=== PATIENT | male | born 1960 | race Two or more races ===

== ENCOUNTER → 2020-09-12 10:24 | Outpatient (CLI) | payer OTHER, SELFPAY ==
--- NOTE | 2020-09-12 10:34 | XR_ITS ---
PROCEDURE: XR FOOT WT BEARING LT 3V CLINICAL INDICATION: pain COMPARISON: No exams were available for comparison FINDINGS: No fracture or dislocation. No lytic or blastic change. There is normal mineralization. The joint spaces are well-preserved. No significant degenerative/arthritic changes. No erosive changes evident. Other findings:None. IMPRESSION: No acute findings. Dictated by: Gibran Montes MD 09/12/2020 11:12 Gibran Montes MD in [facility] 09/12/2020 11:12
--- NOTE | 2020-09-12 10:34 | XR_ITS ---
PROCEDURE: XR FOOT WT BEARING RT 3V CLINICAL INDICATION: pain COMPARISON: No exams were available for comparison FINDINGS: No fracture or dislocation. No lytic or blastic change. There is normal mineralization. Osteoarthritic changes are present at the DIP of the 2nd toe Other findings:None. 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
== END ==
PROVIDERS: Visit Provider Nurse Practitioner
DX: M72.2 Plantar fascial fibromatosis (principal)
CPT/HCPCS: 73630

== ENCOUNTER 2020-11-04 12:58 | Day surgery (SDC) | payer OTHER, SELFPAY ==
[2020-11-04 13:02] VITALS: BP 141/84; PULSE 80; RESP 18; TEMP 36.6; O2SAT 98; BMI 25.7
[2020-11-04 13:25] VITALS: BP 121/74; BP 133/74; PULSE 85; RESP 18; O2SAT 98
[2020-11-04 13:37] VITALS: BP 130/78; PULSE 79; RESP 20; O2SAT 98
--- NOTE | 2020-11-04 13:59 | [facility].PMPROC ---
- Procedure Date: 11/04/20 Time: 13:59 Anesthesiologist:: Nate Rodriguez MD Complications:: None Pre-procedure Diagnosis:: Left tarsal tunnel syndrome with heel pain Post-procedure Diagnosis:: Same Indications for Procedure:: Patient is a pleasant 60-year-old [place] male who we are treating for left-sided heel pain and tarsal tunnel syndrome. He has had a heel block which did not give him much relief. We will do a posterior tibial nerve block under ultrasound today to see if this gives him better relief of his symptoms. Procedure Details:: Posterior tibial nerve block with ultrasound Informed consent was obtained the risk and benefits of the procedure were explained to the patient. Patient was taken to the procedure room. The left foot was prepped using ChloraPrep. Under ultrasound guidance we injected 10 mL bupivacaine 0.25% Depo-Medrol 40 mg and around the left posterior tibial nerve. Patient tolerated procedure well with no complications. Plan and Disposition:: We will follow-up with him in 2 weeks. Will reevaluate symptoms at that time.
== END 2020-11-04 13:39 | disposition home or self-care (01) ==
PROVIDERS: PCP Emergency Medicine; Visit Provider Anesthesiology
DX: G57.52 Tarsal tunnel syndrome, left lower limb (principal); Z88.1 Allergy status to other antibiotic agents
CPT/HCPCS: 64450; 76942; J1030

== ENCOUNTER → 2020-11-04 15:16 | Outpatient (CLI) | payer OTHER, SELFPAY ==
[2020-11-04 15:25] LABS: Basophils % 0.6 % (0.1-2.0); Eosinophils # 0.1 K/mm3 (0.0-0.4); Eosinophils % 2.3 % (0.1-12.0); Hematocrit 50.6 % (42.0-52.0); Hemoglobin 16.6 g/dL (14.1-18.0); Lymphocytes # 1.3 K/mm3 (0.7-4.5); Lymphocytes % 26.3 % (10-50); Mean Corpuscular HGB Conc 32.7 g/dL (31.8-35.4); Mean Corpuscular Hemoglobin 31.4 pg (27.0-31.2); Mean Corpuscular Volume 96.1 fl (80-94); Mean Platelet Volume 8.6 fl (7.4-10.4); Monocytes # 0.2 K/mm3 (0.1-1.0); Monocytes % 4.4 % (1.7-9.3); Neutrophils # 3.4 K/mm3 (1.8-7.8); Neutrophils % 66.4 % (37.0-80.0); Platelet Count 226 K/mm3 (142-424); Red Blood Count 5.27 M/mm3 (4.60-6.20); Red Cell Distribution Width 13.7 % (11.5-17.5); White Blood Count 5.1 K/mm3 (4.8-10.8)
[2020-11-04 15:36] LABS: Alanine Aminotransferase 30 U/L (12-78); Albumin Level 4.8 g/dl (3.5-5.0); Albumin/Globulin Ratio 1.5 (1.1-1.8); Alkaline Phosphatase 119 U/L (38-126); Anion Gap 14.5 mEq/L (5-15); Aspartate Amino Transferase 43 U/L (17-59); Bilirubin,Total 0.9 mg/dl (0.2-1.3); Blood Urea Nitrogen 16 mg/dl (9-20); Calcium 9.7 mg/dl (8.4-10.2); Carbon Dioxide 27 mmol/L (22.0-30.0); Chloride 104 mmol/L (98-107); Chol/HDL Ratio 3.5 (1-3.5); Cholesterol 223 mg/dl (140-200); Estimated Glomerular Filt Rate 76 ml/min (>60); GFR (African American) 92 ML/MIN (>60); Globulin 3.3 g/dL (1.3-3.2); Glucose 96 mg/dl (74-100); HDL Cholesterol 63 mg/dl (40-60); Potassium 4.5 mmoL/L (3.5-5.1); Sodium 141 mmol/L (136-145); Total Protein,Serum 8.1 g/dl (6.3-8.2); Triglycerides 101 mg/dl (30-150); VLDL Cholesterol 20 mg/dL (0-40)
[2020-11-04 15:46] LABS: Direct LDL Cholesterol 127.11 mg/dL (100-129)
[2020-11-04 16:07] LABS: Prostate Specific Ag Screen 1.3 ng/ml (0.0-4.0); Thyroid Stimulating Hormone 1.22 uIU/mL (0.465-4.68)
== END ==
PROVIDERS: Specialist; Visit Provider Emergency Medicine
DX: Z00.00 Encounter for general adult medical examination without abnormal findings (principal); Z12.5 Encounter for screening for malignant neoplasm of prostate
CPT/HCPCS: 80053; 80061; 82746; 84443; 85025; G0103

== ENCOUNTER 2020-11-18 08:59 | Day surgery (SDC) | payer OTHER, SELFPAY ==
[2020-11-18 09:16] VITALS: BP 130/85; PULSE 77; RESP 18; TEMP 36.6; O2SAT 98; BMI 24.9
[2020-11-18 09:56] VITALS: BP 132/78; PULSE 78; RESP 18
[2020-11-18 09:57] VITALS: BP 128/89; PULSE 79; RESP 18; O2SAT 98
[2020-11-18 10:03] VITALS: BP 127/81; PULSE 63; RESP 18; O2SAT 98
--- NOTE | 2020-11-18 10:04 | P.PCN_ITS ---
- Procedure Date: 11/18/20 Time: 10:04 Anesthesiologist:: Nate Rodriguez MD Complications:: None Pre-procedure Diagnosis:: Left tarsal tunnel syndrome with heel pain Post-procedure Diagnosis:: Same Indications for Procedure:: This patient is a pleasant 60-year-old [place] male who we are treating for left-sided heel pain and tarsal tunnel syndrome. He last had a posterior tibial nerve block with ultrasound which took his pain from an 8 out of 10 to a 4-5 out of 10 for several weeks. His pain is now back. We will do a repeat posterior tibial nerve block and a left-sided heel block to see if this gives him any additional relief. Procedure Details:: Posterior tibial nerve block with ultrasound and heel block. Informed consent was obtained risk and benefits of the procedure were explained to the patient. The patient was taken to the procedure room. The left foot was prepped using ChloraPrep. Under ultrasound guidance we injected 10 mL bupiv acaine 0.25% and Depo-Medrol 40 mg around the left posterior tibial nerve. And then under ultrasound guidance we also injected 10 mL bupivacaine 0.25% and Depo-Medrol 40 mg into the area of the left heel. The patient tolerated both procedures well with no complications. Plan and Disposition:: We will follow-up with him in 2 weeks. Will reevaluate symptoms at that time. I did talk to him about peripheral nerve stimulation with the [employer] system as a long-term treatment option
== END 2020-11-18 10:03 | disposition home or self-care (01) ==
LOC: SC.PAINP 09:00
PROVIDERS: PCP Emergency Medicine; Visit Provider Anesthesiology
DX: G57.52 Tarsal tunnel syndrome, left lower limb (principal); M79.672 Pain in left foot; I10 Essential (primary) hypertension; Z88.8 Allergy status to other drugs, medicaments and biological substances; Z87.39 Personal history of other diseases of the musculoskeletal system and connective tissue; M19.90 Unspecified osteoarthritis, unspecified site
CPT/HCPCS: 64450; 76942; J1040

== ENCOUNTER 2023-09-06 14:54 | Outpatient (CLI) | payer OTHER, SELFPAY ==
[2023-09-06 14:28] LABS: Basophils % 0.8 % (0.1-2.0); Eosinophils # 0.1 K/mm3 (0.0-0.4); Eosinophils % 2.2 % (0.1-12.0); Hematocrit 49.3 % (42.0-52.0); Hemoglobin 16.8 g/dL (14.1-18.0); Lymphocytes # 1.4 K/mm3 (0.7-4.5); Lymphocytes % 24.4 % (10-50); Mean Corpuscular HGB Conc 34.1 g/dL (31.8-35.4); Mean Corpuscular Hemoglobin 32.3 pg (27.0-31.2); Mean Corpuscular Volume 94.7 fl (80-94); Mean Platelet Volume 9.3 fl (7.4-10.4); Monocytes # 0.4 K/mm3 (0.1-1.0); Monocytes % 7.8 % (1.7-9.3); Neutrophils # 3.7 K/mm3 (1.8-7.8); Neutrophils % 64.8 % (37.0-80.0); Platelet Count 199 K/mm3 (142-424); Red Blood Count 5.21 M/mm3 (4.60-6.20); Red Cell Distribution Width 13.6 % (11.5-17.5); White Blood Count 5.7 K/mm3 (4.8-10.8)
[2023-09-06 15:16] LABS: 25-OH Vitamin D, Total 19.8 ng/mL (30-100)
[2023-09-06 15:27] LABS: Alanine Aminotransferase 28 U/L (12-78); Albumin Level 4.4 g/dl (3.5-5.0); Albumin/Globulin Ratio 1.4 (1.1-1.8); Alkaline Phosphatase 96 U/L (38-126); Anion Gap 12.7 mEq/L (5-15); Aspartate Amino Transferase 33 U/L (17-59); Bilirubin,Total 0.9 mg/dl (0.2-1.3); Blood Urea Nitrogen 11 mg/dl (9-20); Calcium 9.2 mg/dl (8.4-10.2); Carbon Dioxide 29 mmol/L (22.0-30.0); Chloride 104 mmol/L (98-107); Chol/HDL Ratio 4.5 (1-3.5); Cholesterol 217 mg/dl (140-200); Estimated Glomerular Filt Rate 114 ml/min (>60); GFR (African American) 137 ML/MIN (>60); Globulin 3.1 g/dL (1.3-3.2); Glucose 80 mg/dl (74-100); HDL Cholesterol 48 mg/dl (40-60); Potassium 4.7 mmoL/L (3.5-5.1); Sodium 141 mmol/L (136-145); Total Protein,Serum 7.5 g/dl (6.3-8.2); Triglycerides 136 mg/dl (30-150); VLDL Cholesterol 27 mg/dL (0-40)
[2023-09-06 15:39] LABS: Direct LDL Cholesterol 129.07 mg/dL (100-129)
[2023-09-06 15:44] LABS: T4 (Thyroxine) 8.8 ug/dl (5.53-11.0)
[2023-09-06 15:57] LABS: Prostate Specific Ag Screen 1.4 ng/ml (0.0-4.0); Thyroid Stimulating Hormone 1.25 uIU/mL (0.465-4.68)
== END 2023-09-06 23:59 ==
LOC: LAB.DROPOF 14:54
PROVIDERS: PCP Internal Medicine; Visit Provider Internal Medicine
DX: E78.00 Pure hypercholesterolemia, unspecified (principal); E55.9 Vitamin D deficiency, unspecified; Z12.5 Encounter for screening for malignant neoplasm of prostate
CPT/HCPCS: 80053; 80061; 82306; 84436; 84443; 85025; G0103

== ENCOUNTER 2025-04-20 16:00 | Outpatient (CLI) | payer OTHER, SELFPAY ==
--- OUTSIDE RECORDS SUMMARY | 2025-01-18 10:30 | XMS_ITS | Encounter Summary ---
Author Organization [facility] Address [address] [place] [address] Care Team Providers Care Benefits Manager Name Role Phone Unavailable Primary Care Provider Unavailabl e Reason for Referral * Imaging (Routine) - Pending Review Specialty Diagnoses / Procedures Referred By Contac t Referred To Contact Radiology Diagnoses Visual field loss Procedures MR Head w and wo IV Contrast Jonnathan Zapata MD [address] [place] [address] Phone: tel: fax: Referral ID Status Reason Start Date Expiration Date V isits Requested Visits Authorized [id number] Pending Review 01/18/2025 07/20/2026 1 1 * Imaging (Routine) - Pending Review Specialty Diagnoses / Procedures Referred By Contac t Referred To Contact Radiology Diagnoses Visual field loss Optic neuropathy Procedures MR Orbits w and wo IV Contrast Jonnathan Zapata MD [address] [place] [id number] Phone: tel: fax: Referral ID Status Reason Start Date Expiration Date V isits Requested Visits Authorized [id number] Pending Review 01/18/2025 07/20/2026 1 1 Encounter Details Date Type Department Care Team (Late st Contact Info) Description 01/18/2025 10:30 AM EDT Office Visit [facility] [address], [address] [place] [address] Jonnathan Zapata MD [address] [place] [address] Visual field loss (Primary Dx); Optic neuropathy; Normal tension glaucoma of both eyes, mild stage; Dry eye; Combined form of age-related cataract, both eyes; Dry eyes; Epiretinal membrane, both eyes; Family history of macular degeneration; Cystoid nevus of conjunctiva of right eye; Arcus senilis of both corneas; Vitreous floaters of both eyes; Allergic conjunctivitis of both eyes; Squamous blepharitis of upper and lower eyelids of both eyes; Ocular migraine; Hyperopia with presbyopia of both eyes Social History Tobacco Use Types Packs/Day Years Used Date Smoking Tobacco: Never Passive Smoke Exposure: Never Smokeless Tobacco: Never Tobacco Cessation:Counseling Given: Not Answered Alcohol Use Standard Drinks/Week Comments Never 0 (1 standard drink = 0.6 oz pur e alcohol) PHQ-2 Answer Date Recorded Patient Health Questionnaire-2 Score 0 08/09/2022 PHQ-2A Answer Date Recorded Patient Health Questionnaire-2 Score 0 08/09/2022 Sex and Gender Information Value Date Recorded Sex Assigned at Not on file Legal Sex Male 7:31 PM EDT Gender Identity Not on file Sexual Orientation Not on file documented as of this encounter Miscellaneous Notes * Addendum Note - Jonnathan Zapata MD - 01/18/2025 10:30 AM EDTAddended by: JONNATHAN ZAPATA on: 03/04/2025 09:40 AM Modules accepted: Orders * Progress Notes - Jonnathan Zapata MD - 01/18/2025 10:30 AM EDT Patient overdue for follow up Last seen July 2023 Today: update tobacco/vape exposure, Manifest refraction, check glare, IOP check with applanation, HVF 30-2 fast OU, dilate and OCT macula and OCT RNFL OU Optic Disc Cupping / Normal Tension Glaucoma Suspect Diagnosis sleep apnea- uses oral appliance at night. History of suspicious optic disc appearance. Goal to keep IOP 12 or lower (ideally single digits) Highest IOP 16, 17 Continues to use Lumigan OU at bedtime (qhs) - using 3 times per week, not compliant Last seen July 2023 OCT RNFL OU today, January 2025: OD - thin superiorly and nasally, overall thin (74) OS - borderline thin RNFL superior temporally overall WNL (88) HVF 30-2 fast July 2023: OD - GHT WNL, PSD 1.90 OS - GHT WNL, PSD 2.12, early inferior arcuate defect HVF 30-2 fast OU today, January 2025 - worse OU OD - reliable, GHT outside normal, PSD 2.97, MD -2.46, inferior arcuate > superior arcuate, suspicious for inferior, right-sided quadrantopia OS - reliable, GHT borderline, PSD 3.06, MD -3.15, inferior>superior arcuate, preponderance of defects in right inferior quadrant IOP today: 12 OU (did not use lumigan since Saturday) Color vision: 1414 OU Plan: Worsening visual field changes OU. Suspect worsening NTG. Patient not compliant with drops or follow up visits. Rx for Lumigan refilled today. Discussed compliance with drops and follow ups. Also discussed other possible causes of visual field loss. Ordered labs (vitamins and toxins) and neuroimaging - MRI orbits and brain with and without contrast. Rule out compressive lesions to optic nerve(s) and chiasm and also rule out posterior CVAs. Recheck 2 months IOP check with applanation. Review test results. If IOP 13 or greater may change to trial of rocklatan. Addendum 02-17-2025: The following message was sent to patient via [employer]. Dear Mr. Hammermino, As you recall, I ordered laboratory studies to rule out vitamin deficiencies and toxic exposures aspossible causes, or contributing causes, of optic nerve damage. Your vitamin B12 level is low. For ideal optic nerve health, vitamin B12 level should remain above 400. Your vitamin B12 level was 272. Most people get enough vitamin B12 from a balanced diet. However, older adults, vegetarians, and people with conditions that affect their ability to absorb vitamin B12 can develop vitamin B12 deficiencies. Also certain medications can decrease the absorption of vitamin B12 from our food. Some medicationsand supplements can reduce your body's ability to absorb vitamin B12 including: somaminosalicylic acid, colchicine, metformin, omeprazole, lansoprazole and vitamin C supplements. Do not stop taking any regular medications without first consulting your primary care doctor. I recommend that you begin taking an uzkw-ybo-yyyedyd vitamin B12 supplement, 1000 mcg daily, underthe tongue. Look for the sublingual B12 supplements gfpn-wki-konalgc. I also recommend you follow up with your primary care provider regarding the B12 deficiency and have the B12 level rechecked in a few months. -Jonnathan Zapata MD Addendum 03/04/2025: MRI brain and orbits with and without contrast on 03/03/2025 IMPRESSION: No acute intracranial findings. Mild white matter disease likely reflects sequela of chronic microvascular ischemia. Unremarkable appearance of the bilateral orbits. Mild to moderate mucosal sinus disease of the right maxillary sinus. Cataracts both eyes. Glare testing today 20/30+2 OD and 20/25-2 OS. The patient has been informed of the diagnosis and the prognosis with and without surgery. Will wait on surgery for now as deemed not severe enough to require intervention at this time. Recommend wearing UV sunglasses outside. Do not smoke. Follow and recheck in 12 months. Family history of macular degeneration in mother and sister. Patient has only very mild aging changes in the macula. No subretinal fluid. No hemorrhage. - UV sunglasses outside. - Eat diet with darkly pigmented vegetables and citrus fruit. - Screen vision at home daily with [employer]. - Recheck one year or sooner PRN if new symptoms. Epiretinal Membrane OU This is mild. The patient has been informed of the diagnosis and the prognosis with and without surgery. Will wait on surgery for now as deemed not severe enough to require intervention at this time. OCT macula OU today: ERM OU Blunting of the normal foveal depression OD more than OS. No CME. No VMT. Follow, repeat testing next year or sooner PRN. Corneal arcus - This is not visually significant. Nevus OU conjunctiva. Will follow. Patient does not notice any new changes. Vitreous syneresis - No pigment or hemorrhage in vitreous. Retina intact 360 degrees to aura with no holes, tears or detachments. Patient advised to return immediately for any new symptoms such as bright flashes, shower of floaters or any loss of vision. Anterior Blepharitis: - warm compresses - gentle eyelid scrub with clean washcloth, warm water and baby shampoo - Cliradex wipes or Ocusoft Oust Demodex wipes BID for 60 days - zwob-hsb-dfjwroe artificial tears / lubricant eye drops as needed for comfort. ALLERGY EYE - avoid eye rubbing - proper eyelid hygiene. - rixk-xfo-yxngbyn allergy drops BID (Zaditor, Alaway, or Patanol) as needed. - Return if symptoms worsen, do not improve or if other new symptoms occur. DRY EYES/ Superficial Punctate Keratopathy. Epiphora when using screens, foreign body sensation, burning sensation. - Avoid eye rubbing. - artificial tears (prefer preservative-free) 4 to 6 times daily - warm compresses to the closed eyelids twice daily - lubricant ointment (lacrilube, refresh pm or genteal pm) before bed - Eat foods rich in omega-3 fatty acids and stay well hydrated. - sleeping mask over the eyes at night maybe be helpful Refractive error: Patient given a copy of updated glasses Rx. Patient may have this Rx filled at any optical shop. Advised to ask about return policy at optical shop. Discussed with patient that manifest refraction is a subjective process that can be affected by issues such as underlying eye disease, dry eye and fatigue and focus/attention during the test. If there are any issues or problems withthe new glasses, patient may return here for a recheck / tweaking of the prescription if necessary at no charge. Tobacco Use: Low Risk (07/15/2023) Patient History Smoking Tobacco Use: Never Smokeless Tobacco Use: Never Passive Exposure: Not on file No vaping The patient has been counseled on tobacco cessation: Not Applicable RV check new glasses, check IOP, review tests documented in this encounter Plan of Treatment Upcoming Encounters Date Type Department Care Team (Late st Contact Info) Description 06/21/2025 2:45 PM EST Office Visit [facility] [address], [address] [place] [address] Jonnathan Zapata MD [address] [place] [address] documented as of this encounter Procedures Procedure Name Priority Date/Time Associated Diagnosis Comments OCT, RETINA - OU - BOTH EYES Routine 01/18/2025 2:32 PM EDT Epiretinal membrane, both eyes OCT, OPTIC NERVE - OU - BOTH EYES Routine 01/18/2025 2:24 PM EDT Normal tension glaucoma of both eyes, mild stage HSU VISUAL FIELD - OU - BOTH EYES Routine 01/18/2025 2:23 PM EDT Normal tension glaucoma of both eyes, mild stage documented in this encounter Results * MR Head w and wo IV Contrast (03/02/2025 3:24 PM EDT) Anatomical Region Laterality Modality Head Magnetic Resonan ce Impressions 03/03/2025 7:44 PM EDT No acute intracranial findings. Mild white matter disease likely reflects sequela of chronic microvascular ischemia. Unremarkable appearance of the bilateral orbits. Mild to moderate mucosal sinus disease of the right maxillary sinus. CRITICAL RESULT: No. COMMUNICATION: Per this written report. By electronically signing this report, I, the attending physician, attest that I have personally reviewed the images/data for the above examination(s) and agree with the final edited report. Drafted by Jorge Metz M.D. on 03/03/2025 7:14 PM Final report signed by Naeem Juarez MD on 03/03/2025 7:44 PM Narrative 03/03/2025 7:44 PM EDT CLINICAL INDICATION: Vision loss, monocular TECHNIQUE: Multiplanar multiecho sequences were performed through the brain utilizing T1 and T2 weighting, as well as either axial susceptibility weighted or gradient echo sequences, and axial diffusion weighted images. Imaging was performed with and without contrast administration: 7.5 mL of Gadavist. Multiplanar multiecho sequences were performed through the orbits utilizing T1 and T2 weighted, with and without contrast, and with and without fat-saturation. COMPARISON: None. FINDINGS: MRI BRAIN: Diagnostic Quality: Adequate. The ventricles and sulci are normal in size. There are no definite focal parenchymal lesions or masses. Moderate T2/FLAIR hyperintensities within the subcortical, deep and periventricular white matter which are nonspecific, likely reflecting sequela of chronic microvascular ischemia. No abnormal intracranial enhancement is present. There is no abnormal parenchymal susceptibility artifact or restricted diffusion. Vascular Flow Voids: Normal. Extracranial Findings: None. Craniocervical Junction and Skull Base: No tonsillar ectopia or mass is present. MRI ORBIT: Diagnostic Quality: Motion Degraded. Orbits: No orbital masses are present. The globes are normal. The extraocular muscles are normal in size, signal and configuration. The lacrimal glands are normal. Optic Nerves: The optic nerves are normal in size and signal intensity. No abnormal enhancement is present within the optic nerves or of the optic nerve sheaths. Soft Tissues: No masses are present within the preseptal and periorbital soft tissues Sellar/Suprasellar Region: No sellar or suprasellar masses are present. No cavernous sinus masses are present. Paranasal Sinuses/Nasal Cavity: Mucosal retention cyst and mild to moderate mucosal sinus disease of the right maxillary sinus. The left maxillary sinus and remaining paranasal sinuses are grossly clear. Complete opacification of the left nasolacrimal duct. Procedure Note Naeem Juarez MD - 03/03/2025 CLINICAL INDICATION: Vision loss, monocular TECHNIQUE: Multiplanar multiecho sequences were performed through the brain utilizingT1 and T2 weighting, as well as either axial susceptibility weighted orgradient echo sequences, and axial diffusion weighted images. Imaging wasperformed with and without contrast administration: 7.5 mL of Gadavist. Multiplanar multiecho sequences were performed through the orbitsutilizing T1 and T2 weighted, with and without contrast, and with andwithout fat-saturation. COMPARISON: None. FINDINGS: MRI BRAIN: Diagnostic Quality: Adequate. The ventricles and sulci are normal in size. There are no definite focal parenchymal lesions or masses. ModerateT2/FLAIR hyperintensities within the subcortical, deep and periventricularwhite matter which are nonspecific, likely reflecting sequela of chronicmicrovascular ischemia. No abnormal intracranial enhancement is present. There is no abnormal parenchymal susceptibility artifact or restricteddiffusion. Vascular Flow Voids: Normal. Extracranial Findings: None. Craniocervical Junction and Skull Base: No tonsillar ectopia or mass ispresent. MRI ORBIT: Diagnostic Quality: Motion Degraded. Orbits: No orbital masses are present. The globes are normal. Theextraocular muscles are normal in size, signal and configuration. Thelacrimal glands are normal. Optic Nerves: The optic nerves are normal in size and signal intensity. Noabnormal enhancement is present within the optic nerves or of the opticnerve sheaths. Soft Tissues: No masses are present within the preseptal and periorbitalsoft tissues Sellar/Suprasellar Region: No sellar or suprasellar masses are present. Nocavernous sinus masses are present. Paranasal Sinuses/Nasal Cavity: Mucosal retention cyst and mild tomoderate mucosal sinus disease of the right maxillary sinus. The leftmaxillary sinus and remaining paranasal sinuses are grossly clear.Complete opacification of the left nasolacrimal duct. IMPRESSION: No acute intracranial findings. Mild white matter disease likely reflects sequela of chronic microvascularischemia. Unremarkable appearance of the bilateral orbits. Mild to moderate mucosal sinus disease of the right maxillary sinus. CRITICAL RESULT: No. COMMUNICATION: Per this written report. By electronically signing this report, I, the attending physician, attestthat I have personally reviewed the images/data for the aboveexamination(s) and agree with the final edited report. Drafted by Jorge Metz M.D. on 03/03/2025 7:14 PM Final report signed by Naeem Juarez MD on 03/03/2025 7:44 PM us Jonnathan Zapata MD IMG MRI PROCEDURES Final Result * MR Orbits w and wo IV Contrast (03/02/2025 3:24 PM EDT) Anatomical Region Laterality Modality Orbital structure Magnetic Reson ance Impressions 03/03/2025 7:44 PM EDT No acute intracranial findings. Mild white matter disease likely reflects sequela of chronic microvascular ischemia. Unremarkable appearance of the bilateral orbits. Mild to moderate mucosal sinus disease of the right maxillary sinus. CRITICAL RESULT: No. COMMUNICATION: Per this written report. By electronically signing this report, I, the attending physician, attest that I have personally reviewed the images/data for the above examination(s) and agree with the final edited report. Drafted by Jorge Metz M.D. on 03/03/2025 7:14 PM Final report signed by Naeem Juarez MD on 03/03/2025 7:44 PM Narrative 03/03/2025 7:44 PM EDT CLINICAL INDICATION: Vision loss, monocular TECHNIQUE: Multiplanar multiecho sequences were performed through the brain utilizing T1 and T2 weighting, as well as either axial susceptibility weighted or gradient echo sequences, and axial diffusion weighted images. Imaging was performed with and without contrast administration: 7.5 mL of Gadavist. Multiplanar multiecho sequences were performed through the orbits utilizing T1 and T2 weighted, with and without contrast, and with and without fat-saturation. COMPARISON: None. FINDINGS: MRI BRAIN: Diagnostic Quality: Adequate. The ventricles and sulci are normal in size. There are no definite focal parenchymal lesions or masses. Moderate T2/FLAIR hyperintensities within the subcortical, deep and periventricular white matter which are nonspecific, likely reflecting sequela of chronic microvascular ischemia. No abnormal intracranial enhancement is present. There is no abnormal parenchymal susceptibility artifact or restricted diffusion. Vascular Flow Voids: Normal. Extracranial Findings: None. Craniocervical Junction and Skull Base: No tonsillar ectopia or mass is present. MRI ORBIT: Diagnostic Quality: Motion Degraded. Orbits: No orbital masses are present. The globes are normal. The extraocular muscles are normal in size, signal and configuration. The lacrimal glands are normal. Optic Nerves: The optic nerves are normal in size and signal intensity. No abnormal enhancement is present within the optic nerves or of the optic nerve sheaths. Soft Tissues: No masses are present within the preseptal and periorbital soft tissues Sellar/Suprasellar Region: No sellar or suprasellar masses are present. No cavernous sinus masses are present. Paranasal Sinuses/Nasal Cavity: Mucosal retention cyst and mild to moderate mucosal sinus disease of the right maxillary sinus. The left maxillary sinus and remaining paranasal sinuses are grossly clear. Complete opacification of the left nasolacrimal duct. Procedure Note Naeem Juarez MD - 03/03/2025 CLINICAL INDICATION: Vision loss, monocular TECHNIQUE: Multiplanar multiecho sequences were performed through the brain utilizingT1 and T2 weighting, as well as either axial susceptibility weighted orgradient echo sequences, and axial diffusion weighted images. Imaging wasperformed with and without contrast administration: 7.5 mL of Gadavist. Multiplanar multiecho sequences were performed through the orbitsutilizing T1 and T2 weighted, with and without contrast, and with andwithout fat-saturation. COMPARISON: None. FINDINGS: MRI BRAIN: Diagnostic Quality: Adequate. The ventricles and sulci are normal in size. There are no definite focal parenchymal lesions or masses. ModerateT2/FLAIR hyperintensities within the subcortical, deep and periventricularwhite matter which are nonspecific, likely reflecting sequela of chronicmicrovascular ischemia. No abnormal intracranial enhancement is present. There is no abnormal parenchymal susceptibility artifact or restricteddiffusion. Vascular Flow Voids: Normal. Extracranial Findings: None. Craniocervical Junction and Skull Base: No tonsillar ectopia or mass ispresent. MRI ORBIT: Diagnostic Quality: Motion Degraded. Orbits: No orbital masses are present. The globes are normal. Theextraocular muscles are normal in size, signal and configuration. Thelacrimal glands are normal. Optic Nerves: The optic nerves are normal in size and signal intensity. Noabnormal enhancement is present within the optic nerves or of the opticnerve sheaths. Soft Tissues: No masses are present within the preseptal and periorbitalsoft tissues Sellar/Suprasellar Region: No sellar or suprasellar masses are present. Nocavernous sinus masses are present. Paranasal Sinuses/Nasal Cavity: Mucosal retention cyst and mild tomoderate mucosal sinus disease of the right maxillary sinus. The leftmaxillary sinus and remaining paranasal sinuses are grossly clear.Complete opacification of the left nasolacrimal duct. IMPRESSION: No acute intracranial findings. Mild white matter disease likely reflects sequela of chronic microvascularischemia. Unremarkable appearance of the bilateral orbits. Mild to moderate mucosal sinus disease of the right maxillary sinus. CRITICAL RESULT: No. COMMUNICATION: Per this written report. By electronically signing this report, I, the attending physician, attestthat I have personally reviewed the images/data for the aboveexamination(s) and agree with the final edited report. Drafted by Jorge Metz M.D. on 03/03/2025 7:14 PM Final report signed by Naeem Juarez MD on 03/03/2025 7:44 PM Jonnathan Zapata MD IMG MRI PROCEDURES Final Result * Creatinine, Plasma (02/16/2025 10:40 AM EDT) Creatinine, Plasma 0.78 0.70 - 1.20 mg/dL 02/16/2025 11:53 AM EDT [facility] eGFRcr 99.0 mL/min/1.7 3m*2 02/16/2025 11:53 AM EDT [facility] Comment:Reported eGFRcr in m L/min/1.73m2 is based the CKD-EPI 2020 equation that does not use a race coefficient. Blood Venous blood specimen / Unknown Venipuncture / Unknown 02/16/2025 10:40 AM EDT 02/16/2025 10:40 AM EDT Jonnathan Zapata MD LAB BLOOD ORDERABLES Final Resul t [facility] [address] [place] [address] * Vitamin B1 (Thiamine), Whole Blood (02/16/2025 10:40 AM EDT) VITAMIN B1, WHOLE BLOOD 159 70 - 180 nmol/L 02/19/2025 12:41 AM EDT [facility] Blood Venous blood specimen / Unknown Venipuncture / Unknown 02/16/2025 10:40 AM EDT 02/16/2025 10:40 AM EDT Narrative [facility] - 02/19/2025 12:41 AM EDT INTERPRETIVE INFORMATION: Vitamin B1, Whole Blood This assay measures the concentration of thiamine diphosphate (TDP), the primary active form of vitamin B1. Approximately 90 percent of vitamin B1 present in whole blood is TDP. Thiamine and thiamine monophosphate, which comprise the remaining 10 percent, are not measured. This test was developed and its performance characteristics determined by [facility]. It has not been cleared or approved by the [place] Food and Drug Administration. This test was performed in a CLIA certified laboratory and is intended for clinical purposes. Performed By: [facility] [address] [place] [id number] Proposal Review Analyst: Charan Monet MD, PhD CLIA Number: [id number] Jonnathan Zapata MD LAB BLOOD ORDERABLES Final Resul t Performing Organization Address City/[facility] [address]/[facility] Co de Phone Number [facility] [address] [place] [address] * Vitamin B12, Serum (02/16/2025 10:40 AM EDT) [facility] Vitamin B12, Serum 272 210 - 1,033 pg/mL 02/16/2025 12:43 PM EDT [facility] Blood Venous blood specimen / Unknown Venipuncture / Unknown 02/16/2025 10:40 AM EDT 02/16/2025 10:40 AM EDT Jonnathan Zapata MD LAB BLOOD ORDERABLES Final Resul t Performing Organization Address City/[facility] [address]/ZIP Co de Phone Number [facility] [address] [place] [address] * Heavy Metals Panel 3, Blood (02/16/2025 10:40 AM EDT) Pathologist [facility] Arsenic, Whole Blood <10.0 <=12.0 ug/L 02/17/2025 11:56 PM EDT [facility]) Mercury, Whole Blood <2.5 <=10.0 ug/L 02/17/2025 11:56 PM EDT [facility]) Lead, Whole Blood (Venous) <2.0 <=4.9 ug/dL 02/17/2025 11:56 PM EDT [facility]) Blood Venipuncture / Unknown 02/16/2025 10:40 AM EDT 02/16/2025 10:40 AM EDT Narrative [facility] - 02/17/2025 11:56 PM EDT INTERPRETIVE INFORMATION: Arsenic, Blood Elevated results may be due to skin or collection-related contamination, including the use of a noncertified metal-free collection/transport tube. If contamination concerns exist due to elevated levels of blood arsenic, confirmation with a second specimen collected in a certified metal-free tube is recommended. Potentially toxic ranges for blood arsenic: Greater than or equal to 600 ug/L. Blood arsenic is for the detection of recent exposure poisoning only. Blood arsenic levels in healthy subjects vary considerably with exposure to arsenic in the diet and the environment. A 24-hour urine arsenic is useful for the detection of chronic exposure. This test was developed and its performance characteristics determined by [facility]. It has not been cleared or approved by the [place] Food and Drug Administration. This test was performed in a CLIA certified laboratory and is intended for clinical purposes. INTERPRETIVE INFORMATION: Lead, Blood (Venous) Analysis performed by Inductively Coupled Plasma-Mass Spectrometry (ICP-MS). Elevated results may be due to skin or collection-related contamination, including the use of a noncertified lead-free tube. If contamination concerns exist due to elevated levels of blood lead, confirmation with a second specimen collected in a certified lead-free tube is recommended. Information sources for blood lead reference intervals and interpretive comments include the CDC's Childhood Lead Poisoning Prevention: Recommended Actions Based on Blood Lead Level and the Adult Blood Lead Epidemiology and Surveillance: Reference Blood Lead Levels (BLLs) for Adults in the [place] Thresholds and time intervals for retesting, medical evaluation, and response vary by state and regulatory body. Contact your State Department of Health and/or applicable regulatory agency for specific guidance on medical management recommendations. This test was developed and its performance characteristics determined by [facility]. It has not been cleared or approved by the U.S. Food and Drug Administration. This test was performed in a CLIA-certified laboratory and is intended for clinical purposes. Group Concentration Comment Children 3.5-19.9 ug/dL Children under the age of 6 years are the most vulnerable to the harmful effects of lead exposure. Environmental investigation and exposure history to identify potential sources of lead. Biological and nutritional monitoring are recommended. Follow-up blood lead monitoring is recommended. 20-44.9 ug/dL Lead hazard reduction and prompt medical evaluation are recommended. Contact a Pediatric Environmental Health Specialty Unit or poison control center for guidance. Greater than Critical. Immediate medical 44.9 ug/dL evaluation, including detailed neurological exam is recommended. Consider chelation therapy when symptoms of lead toxicity are present. Contact a Pediatric Environmental Health Specialty Unit or poison control center for assistance. Adult 5-19.9 ug/dL Medical removal is recommended for women or those who are trying or may become . Adverse health effects are possible. Reduced lead exposure and increased blood lead monitoring are recommended. 20-69.9 ug/dL Adverse health effects are indicated. Medical removal from lead exposure is required by OSHA if blood lead level exceeds 50 ug/dL. Prompt medical evaluation is recommended. Greater than Critical. Immediate medical 69.9 ug/dL evaluation is recommended. Consider chelation therapy when symptoms of lead toxicity are present. INTERPRETIVE INFORMATION: Mercury, Blood Elevated results may be due to skin or collection-related contamination, including the use of a noncertified metal-free collection/transport tube. If contamination concerns exist due to elevated levels of blood mercury, confirmation with a second specimen collected in a certified metal-free tube is recommended. Blood mercury levels predominantly reflect recent exposure and are most useful in the diagnosis of acute poisoning as blood mercury concentrations rise sharply and fall quickly over several days after ingestion. Blood concentrations in unexposed individuals rarely exceed 20 ug/L. The provided reference interval relates to inorganic mercury concentrations. Dietary and non-occupational exposure to organic mercury forms may contribute to an elevated total mercury result. Clinical presentation after toxic exposure to organic mercury may include dysarthria, ataxia and constricted vision morin with mercury blood concentrations from 20 to 50 ug/L. This test was developed and its performance characteristics determined by [facility]. It has not been cleared or approved by the [place] Food and Drug Administration. This test was performed in a CLIA certified laboratory and is intended for clinical purposes. Performed By: [facility] [address] [place] [address] Proposal Review Analyst: Charan Monet MD, PhD CLIA Number: [id number] us Jonnathan Zapata MD LAB BLOOD ORDERABLES Final Resul t [facility] ([facility]) [address] [place] [address] * Folate, Serum (02/16/2025 10:40 AM EDT) Folate, Serum 19.1 >4.6 ng/mL 02/16/2025 12:43 PM EDT [facility] Blood Venous blood specimen / Unknown Venipuncture / Unknown 02/16/2025 10:40 AM EDT 02/16/2025 10:40 AM EDT Result [facility] us Jonnathan Zapata MD LAB BLOOD ORDERABLES Final Resul t [facility] [address] [place] [address] * OCT, Retina - OU - Both Eyes (01/18/2025 2:32 PM EDT) Anatomical Region Laterality Modality Head Optical Coherenc e Tomography Narrative 01/18/2025 2:32 PM EDT Right Eye Quality was borderline. Scan locations included subfoveal. Findings include abnormal foveal contour. Left Eye Quality was good. Scan locations included subfoveal. Findings include abnormal foveal contour. Notes ERM OU Blunting of the normal foveal depression OD more than OS. No CME. No VMT. us Jonnathan Zapata MD OPHTH TOMOGRAPHY Final Result * OCT, Optic Nerve - OU - Both Eyes (01/18/2025 2:24 PM EDT) Anatomical Region Laterality Modality Head Optical Coherenc e Tomography Narrative 01/18/2025 2:24 PM EDT OCT RNFL OU today, January 2025: OD - thin superiorly and nasally, overall thin (74) OS - borderline thin RNFL superior temporally overall WNL (88) us Jonnathan Zapata MD OPHTH TOMOGRAPHY Final Result * [facility]su Visual Field - OU - Both Eyes (01/18/2025 2:23 PM EDT) Anatomical Region Laterality Modality Head Visual Field Narrative 01/18/2025 2:23 PM EDT Right Eye Reliability was good. Progression has worsened. Left Eye Reliability was good. Progression has worsened. Notes HVF 30-2 fast OU today, January 2025 OD - reliable, GHT outside normal, PSD 2.97, MD -2.46, inferior arcuate > superior arcuate, suspicious for inferior, right-sided quadrantopia OS - reliable, GHT borderline, PSD 3.06, MD -3.15, inferior>superior arcuate, preponderance of defects in right inferior quadrant us Jonnathan Zapata MD OPHTH VISUAL FIELD Edited Result - Final documented in this encounter Visit Diagnoses Diagnosis Visual field loss- Primary Optic neuropathy Other optic neuritis Normal tension glaucoma of both eyes, mild stage Dry eye Combined form of age-related cataract, both eyes Dry eyes Unspecified tear film insufficiency Epiretinal membrane, both eyes Macular puckering of retina Family history of macular degeneration Family history of other eye disorders Cystoid nevus of conjunctiva of right eye Arcus senilis of both corneas Vitreous floaters of both eyes Allergic conjunctivitis of both eyes Other chronic allergic conjunctivitis Squamous blepharitis of upper and lower eyelids of both eyes Ocular migraine Variants of migraine, not elsewhere classified, without mention of intractable migraine without mention of status migrainosus Hyperopia with presbyopia of both eyes Visual field loss Optic neuropathy Other optic neuritis documented in this encounter Additional Health Concerns Assessment Noted Time A fall risk assessment has been complete d for the patient 08/09/2022 8:26 AM EST A Body Mass Index follow-up plan has been documented for the patient 01/18/2025 2:38 PM EDT documented as of this encounter
--- OUTSIDE RECORDS SUMMARY | 2025-03-02 14:22 | XMS_ITS | Encounter Summary ---
Author Organization [facility] Address [address] [place] [address] Care Team Providers Care Veterinary Attendant Name Role Phone Unavailable Primary Care Provider Unavailabl e Reason for Referral * Imaging (Routine) - Pending Review Specialty Diagnoses / Procedures Referred By Contac t Referred To Contact Radiology Diagnoses Visual field loss Procedures MR Head w and wo IV Contrast Catrachita Zapata MD [address] [place] [address] Phone: tel: fax: Referral ID Status Reason Start Date Expiration Date V isits Requested Visits Authorized [id number] Pending Review 01/18/2025 07/20/2026 1 1 * Imaging (Routine) - Pending Review Specialty Diagnoses / Procedures Referred By Contac t Referred To Contact Radiology Diagnoses Visual field loss Optic neuropathy Procedures MR Orbits w and wo IV Contrast Catrachita Zapata MD [address] [place] [id number] Phone: tel: fax: Referral ID Status Reason Start Date Expiration Date V isits Requested Visits Authorized [id number] Pending Review 01/18/2025 07/20/2026 1 1 Reason for Visit * Imaging (Routine) - Pending Review Specialty Diagnoses / Procedures Referred By Contac t Referred To Contact Radiology Diagnoses Visual field loss Procedures MR Head w and wo IV Contrast Catrachita Zapata MD [address] [place] [address] Phone: tel: fax: Referral ID Status Reason Start Date Expiration Date V isits Requested Visits Authorized [id number] Pending Review 01/18/2025 07/20/2026 1 1 Encounter Details Date Type Department Care Team (Latest Contact Info) Description 03/02/2025 2:22 PM EDT - 03/02/2025 11:59 PM EDT Hospital Encounter [facility] [address] [place] [address] Visual field loss; Optic neuropathy Discharge Disposition: Home or Self Care Social History Tobacco Use Types Packs/Day Years Used Date Smoking Tobacco: Never Passive Smoke Exposure: Never Smokeless Tobacco: Never Alcohol Use Standard Drinks/Week Comments Never 0 [...] on file documented as of this encounter Medications at Time of Discharge latanoprost (Xalatan) 0.005 % ophthalmic solution Administer 1 drop into both eyes nightly. 7.5 mL 3 01/18/2025 6 famciclovir (Famvir) 500 MG tablet famciclovir 500 mg tablet TAKE 4 TABLETS 1 DOSE AT START OF ONSET 5 fluticasone (Cutivate) 0.05 % cream fluticasone propionate 0.05 % topical cream APPLY A THIN LAYER TO THE AFFECTED AREA(S) BY TOPICAL ROUTE TWICE DAILY PRN ; RUB IN GENTLY AND COMPLETELY 5 ivermectin (Stromectol) 3 MG tablet ivermectin 3 mg tablet Take 5 tabs as a single dose, repeat in 1 week. 5 ketoconazole (NIZOral) 2 % cream ketoconazole 2 % topical cream APPLY TO THE AFFECTED AREA(S) BY TOPICAL ROUTE TWICE DAILY 5 methylPREDNISolo ne (Medrol Dospak) 4 MG tabletsIndicatio ns:Acute laryngitis Follow schedule on package instructions 21 tablet 07/27/2021 5 metroNIDAZOLE (Flagyl) 500 MG tablet Take 1 tablet (500 mg) by mouth every 8 (eight) hours. 07/23/2022 5 nystatin-triamci nolone (Mycolog II) cream nystatin-triamcino lone 100,000 unit/g-0.1 % topical cream APPLY TO THE AFFECTED AREA(S) BY TOPICAL ROUTE 2 TIMES PER DAY IN THE MORNING AND EVENING 5 nystatin-triamci nolone (Mycolog II) cream APPLY TO AFFECTED AREA(S) TOPICALLY TWICE DAILY IN THE MORNING AND EVENING 01/04/2021 5 permethrin (Elimite) 5 % cream permethrin 5 % topical cream APPLY (THOROUGHLY MASSAGE INTO SKIN FROM HEAD TO SOLES OF FEET) BY TOPICAL ROUTE ONCE LEAVE ON FOR 8-14 HR, THEN REMOVE BY THOROUGH WASHING. REPEAT IN 1 WEEK. 5 promethazine (Phenergan) 12.5 MG tablet every 6 (six) hours. 5 sildenafil (Revatio) 20 MG tablet sildenafil (pulmonary hypertension) 20 mg tablet TAKE TWO TO FIVE TABLETS (40MG TO 100MG) BY MOUTH ONCE DAILY 1 HOUR PRIOR TO SEXUAL ACTIVITY. 5 sildenafil (Viagra) 100 MG tablet Viagra 100 mg tablet As needed 07/13/2014 5 sulfacetamide (Bleph-10) 10 % ophthalmic solution INSTILL 2 DROPS IN BOTH EYES TWICE DAILY FOR 10 DAYS 02/04/2021 5 sulfamethoxazole -trimethoprim (Bactrim DS) 800-160 MG tablet TAKE 1 TABLET BY MOUTH EVERY 12 HOURS FOR 15 DAYS 10/20/2020 5 tadalafil (Adcirca) 20 MG tablet tadalafil 20 mg tablet Take 1 tablet by oral route as directed. 5 traMADol (Ultram) 50 MG tablet every 6 (six) hours. 5 triamcinolone (Kenalog) 0.1 % cream triamcinolone acetonide 0.1 % topical cream APPLY A THIN LAYER TO THE AFFECTED AREA(S) BY TOPICAL ROUTE 2 TIMES PER DAY 5 valACYclovir (Valtrex) 1 g tablet valacyclovir 1 gram tablet TAKE 1 TABLET(S) EVERY DAY BY MOUTH 5 valACYclovir (Valtrex) 1 g tablet Take 1 tablet (1,000 mg) by mouth 1 (one) time each day. 01/18/2021 5 valACYclovir (Valtrex) 500 MG tablet valacyclovir 500 mg tablet TAKE 1 TABLET(S) EVERY DAY BY ORAL ROUTE. 5 documented as of this encounter Plan of Treatment Upcoming Encounters Date Type Department Care Team (Late st Contact Info) Description 06/21/2025 2:45 PM EST Office Visit [facility] [address], [address] [place] [address] Catrachita Zapata MD [address] [place] [address] documented as of this encounter Procedures Procedure Name Priority Date/Time Associated Diagnosis Comments MR ORBITS W AND WO IV CONTRAST Routine 03/02/2025 3:24 PM EDT Visual field loss Optic neuropathy MR HEAD W AND WO IV CONTRAST Routine 03/02/2025 3:24 PM EDT Visual field loss documented in this encounter Results * MR [...] Juarez MD on 03/03/2025 7:44 PM us Catrachita Zapata MD IMG MRI PROCEDURES Final Result [...] signing this report, I, the attending physician, nino I have personally reviewed the images/data for the aboveexamination(s) and agree with the final edited report. Drafted by Jorge Metz M.D. on 03/03/2025 7:14 PM Final report signed by Naeem Juarez MD on 03/03/2025 7:44 PM Catrachita Zapata MD IMG MRI PROCEDURES Final Result documented in this encounter Visit Diagnoses Diagnosis Visual field loss Optic neuropathy Other optic neuritis documented in this encounter Administered Medications Inactive Administered Medications - up to 3 most recent administrations Medication Order MAR Action Action Date Dose Rate Site gadobutrol (Gadavist) injection 7.5 mL 7.5 mL (0.1 mL/kg 75 kg), Intravenous, Once in imaging, 1 dose, Starting on 03/02/25 at 1433, Until 03/02/25 at 1503, Routine, Imaging Protocol Orders Given 03/02/2025 3:03 PM EDT 7.5 mL documented in this encounter Additional Health Concerns Assessment Noted Time A fall risk assessment has been complete d for the patient 08/09/2022 8:26 AM EST A Body Mass Index follow-up plan has been documented for the patient 01/18/2025 2:38 PM EDT documented as of this encounter
--- OUTSIDE RECORDS SUMMARY | 2025-03-22 08:15 | XMS_ITS | Encounter Summary ---
Author Organization [facility] Address [address] [place] [address] Care Team Providers Care Carbon Electrodes Supervisor Name Role Phone Unavailable Primary Care Provider Unavailabl e Encounter Details Date Type Department Care Team (Late st Contact Info) Description 03/22/2025 8:15 AM EDT Office Visit [facility] [address], [address] [place] [address] Catrachita Zapata MD [address] [place] [address] Visual field loss (Primary Dx); Optic neuropathy; Normal tension glaucoma of both eyes, mild stage; Dry eye; Combined form of age-related cataract, both eyes; Cystoid nevus of conjunctiva of right eye; Arcus senilis of both corneas; Allergic conjunctivitis of both eyes; Squamous blepharitis of upper and lower eyelids of both eyes; Hyperopia with presbyopia of both eyes Social [...] as of this encounter Miscellaneous Notes * Progress Notes - Catrachita Zapata MD - 03/22/2025 8:15 AM EDT Today: check new glasses, check IOP, review tests Optic Disc Cupping / Normal Tension Glaucoma Suspect Diagnosis sleep apnea- uses oral appliance at night. History of suspicious optic disc appearance. Goal to keep IOP 12 or lower (ideally single digits) IOP today: 13, 14 Highest IOP 16, 17 Gonio: open OU, 25-30 degree angle OU, area of PAS OS. Using latanoprost at bedtime (qhs) OU (didn't use last night- typically using 5- 6 nights per week) Lumigan - caused stinging like sand . Lost to follow up between July 2023 and January 2025. OCT RNFL OU January 2025: OD - thin superiorly and nasally, overall thin (74) OS - borderline thin RNFL superior temporally overall WNL (88) HVF 30-2 fast July 2023: OD - GHT WNL, PSD 1.90 OS - GHT WNL, PSD 2.12, early inferior arcuate defect HVF 30-2 fast OU January 2025 - worse OU OD - reliable, GHT outside normal, PSD 2.97, MD -2.46, inferior arcuate > superior arcuate, suspicious for inferior, right-sided quadrantopia OS - reliable, GHT borderline, PSD 3.06, MD -3.15, inferior>superior arcuate, preponderance of defects in right inferior quadrant Color vision: 14/14 OU Assessment Worsening visual field changes OU in January 2025. Suspect worsening NTG. Patient not compliant with drops or follow up visits. Rx for latanoprost sent January 2025. Discussed compliance with drops and follow ups. Patient evaluated for other possible causes of visual field loss. MRI brain and orbits with and without contrast on 03/03/2025 No acute intracranial findings. Mild white matter disease likely reflects sequela of chronic microvascular ischemia. Unremarkable appearance of the bilateral orbits. Mild to moderate mucosal sinus disease of the right maxillary sinus. B12 level was 272. Recommended arqr-[id number]-[id number] vitamin B12 supplement, 1000 mcg daily, sublingual and follow up with primary care provider regarding the B12 deficiency and have the B12 level rechecked in a few months. Plan: CPM B12 supplement - recheck level in few months latanoprost at bedtime (qhs) OU for now and stress compliance. Discussed consulting hardwood flooring specialist to consider SLT due to history of poor drop compliance - patient wants to wait on this for now but will consider. Recheck 3 months IOP check with applanation. If IOP 13 or greater may change to trial of rocklatan and/or see glaucoma consult. Cataracts both eyes. Glare testing last visit 20/30+2 OD and 20/25-2 OS. The patient has been informed of the diagnosis and the prognosis with and without surgery. Will wait on surgery for now as deemed not severe enough to require intervention at this time. Recommend wearing UV sunglasses outside.Do not smoke. Follow and recheck in 12 months. Anterior Blepharitis: - warm compresses - gentle eyelid scrub with clean washcloth, warm water and baby shampoo - Cliradex wipes or Ocusoft Oust Demodex wipes BID for 60 days - [id number] artificial tears / lubricant eye drops as needed for comfort. ALLERGY EYE - avoid eye rubbing - proper eyelid hygiene. - frdc-ucn-vakkwba allergy drops BID (Zaditor, Alaway, or Patanol) [...] the eyes at night maybe be helpful - Added Blink Rx for Meibo - sent March 22, 2025 Corneal arcus - This is not visually significant. Nevus OU conjunctiva. Will follow. Patient does not notice any new changes. The following issues are longstanding and were not specifically addressed today: Family history of macular degeneration in mother [...] intervention at this time. OCT macula OU January 2025: ERM OU Blunting of the normal foveal depression OD more than OS. No CME. No VMT. Follow, repeat testing next year or sooner PRN. Vitreous syneresis - No pigment or hemorrhage in vitreous. Retina intact 360 degrees to aura with no holes, tears or detachments. Patient advised to return immediately for any new symptoms such as bright flashes, shower of floaters or any loss of vision. Refractive error: Patient given a copy of updated glasses Rx in January 2025. Tobacco Use: Low Risk (01/18/2025) Patient History Smoking Tobacco Use: Never Smokeless Tobacco Use: Never Passive Exposure: Never No vaping The patient has been counseled on tobacco cessation: Not Applicable RV 3 months IOP check with applanation documented in this encounter Plan of Treatment Upcoming Encounters Date Type Department Care Team (Late st Contact Info) Description 06/21/2025 2:45 PM EST Office Visit [facility] [address], [address] [place] [address] Catrachita Zapata MD [address] [place] [address] documented as of this encounter Visit Diagnoses Diagnosis Visual field loss- Primary Optic neuropathy Other optic neuritis Normal tension glaucoma of both eyes, mild stage Dry eye Combined form of age-related cataract, both eyes Cystoid nevus of conjunctiva of right eye Arcus senilis of both corneas Allergic conjunctivitis of both eyes Other chronic allergic conjunctivitis Squamous blepharitis of upper and lower eyelids of both eyes Hyperopia with presbyopia of both eyes documented in this encounter Additional Health Concerns Assessment Noted Time A fall risk assessment has been complete d for the patient 08/09/2022 8:26 AM EST A Body Mass Index follow-up plan has been documented for the patient 03/22/2025 10:25 AM EDT documented as of this encounter
--- OUTSIDE RECORDS SUMMARY | 2025-04-14 10:20 | XMS_ITS | Encounter Summary ---
Author Organization Healthcare Address [address] [place] [address] Care Team Providers Care Explosives Mixer Operator Name Role Phone Unavailable Primary Care Provider Unavailabl e Reason for Visit * Reason Comments Cerumen Impaction Encounter Details Date Type Department Care Team (Late st Contact Info) Description 04/14/2025 10:20 AM EDT Consult [facility] [address] [place] [address] Jarocho Delgado MD [address] [place] [address] Impacted cerumen of left ear (Primary Dx) Social History Tobacco Use Types Packs/Day Years [...] on file documented as of this encounter Last Filed Vital Signs Vital Sign Reading Time Taken Comments Blood Pressure 133/84 04/14/2025 10:27 AM EDT Pulse 80 04/14/2025 10:27 AM EDT Temperature - - Respiratory Rate - - Oxygen Saturation - - Inhaled Oxygen Concentration - - Weight 74.8 kg (165 lb) 04/14/2025 10:27 AM EDT Height 175.3 cm (5' 9 ) 04/14/2025 10:27 AM EDT Body Mass Index 24.37 04/14/2025 10:27 AM EDT documented in this encounter Miscellaneous Notes * Progress Notes - Jarocho Delgado MD - 04/14/2025 10:20 AM EDT This 65-year-old male has had problems with cerumen impactions in the past. The last time I cleanedhis ears out with about a year ago. He comes in today with some ear fullness and he did have cerumen impactions bilaterally. Under the microscope with a curette we were able to completely clean the wax out of both of his ears. His tympanic membranes are normal. I will see him back as needed. documented in this encounter Plan of Treatment Upcoming Encounters Date Type Department Care Team (Late st Contact Info) Description 06/21/2025 2:45 PM EST Office Visit [facility] [address], [address] [place] [address] Catrachita Zapata MD [address] [place] [address] documented as of this encounter Visit Diagnoses Diagnosis Impacted cerumen of left ear- Primary Impacted cerumen documented in this encounter Additional Health Concerns Assessment Noted Time A fall risk assessment has been complete d for the patient 08/09/2022 8:26 AM EST A Body Mass Index follow-up plan has been documented for the patient 04/14/2025 10:48 AM EDT documented as of this encounter
--- OUTSIDE RECORDS SUMMARY | 2025-04-15 12:10 | XMS_ITS | Encounter Summary ---
Author Organization Healthcare Address [address] [id number] Care Team Providers Care Silk Crepe Machine Operator Name Role Phone Unavailable Primary Care Provider Unavailabl e Encounter Details Date Type Department Care Team (Late st Contact Info) Description 04/15/2025 12:10 PM EDT Office Visit [facility]ology [address] [place] [address] Imelda Marquez APRN [address] [place] [address] Subjective hearing loss (Primary Dx); [...] PM EDT Otology & Neurotology Clinic -- [facility] [address] [facility] [address] Return Patient Visit HPI: 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
[2025-04-20 17:09] LABS: Influenza A, PCR Not Detected (NotDetected); Influenza B, PCR Not Detected (NotDetected)
[2025-04-20 19:04] LABS: Coronavirus 19, PCR Detected (NotDetected)
--- OUTSIDE RECORDS SUMMARY | 2025-04-21 12:39 | XMS_ITS | Encounter Summary ---
Author Organization Healthcare Address [address] [place] [address] Care Team Providers Care Dairy Husbandry Worker Name Role Phone Unavailable Primary Care Provider Unavailabl e Encounter Details Date Type Department Care Team (Latest Contact Info) Description 04/15/2025 Travel Social History Tobacco Use Types Packs/Day Years [...] on file documented as of this encounter Plan of Treatment Upcoming Encounters Date Type Department Care Team (Late st Contact Info) Description 06/21/2025 2:45 PM EST Office Visit [facility] [address], [address] [place] [address] Catrachita Zapata MD [address] [place] [address] documented as of this encounter Visit Diagnoses Not on filedocumented in this encounter Additional Health Concerns Assessment Noted Time A fall risk assessment has been complete d for the patient 08/09/2022 8:26 AM EST A Body Mass Index follow-up plan has been documented for the patient 04/15/2025 12:23 PM EDT documented as of this encounter
--- OUTSIDE RECORDS SUMMARY | 2025-04-21 12:39 | XMS_ITS | Clinical Summary ---
Author Organization [facility] Address [address] [place] [address] Phone Care Team Providers Care Machinist General Name Role Phone Unavailable Unavailable Conditions or Problems No information available. Medications No information available. Medications Administered No information available. Allergies, Adverse Reactions, Alerts No information available. Results No information available. Plan of Care No information available. Procedures No information available. Vital Signs No information available. Immunizations No information available. Advance Directives No information available.
--- OUTSIDE RECORDS SUMMARY | 2025-04-21 12:39 | XMS_ITS | Encounter Summary ---
Author Organization Healthcare Address [address] [place] [address] Care Team Providers Care Operations Manager Name Role Phone Unavailable Primary Care Provider Unavailabl e Encounter Details Date Type Department Care Team (Latest Contact Info) Description 04/14/2025 Travel Social History Tobacco Use Types Packs/Day [...] EST Office Visit [facility] [address], [address] [place] [address] Catrachita Zapata MD [address] [place] [address] documented as of this encounter [...]
--- OUTSIDE RECORDS SUMMARY | 2025-04-21 12:39 | XMS_ITS | Encounter Summary ---
Author Organization Healthcare Address [address] [place] [address] Care Team Providers Care Esthetician/Owner Name Role Phone Unavailable Primary Care Provider Unavailabl e Reason for Visit * Reason Onset Date Comments Hua JOHNSON 03/22/2025 Encounter Details Date Type Department Care Team (Late st Contact Info) Description 03/22/2025 Telephone [facility] [address] [place] [address] Catrachita Zapata MD [address] [place] [address] Hua JOHNSON Social History Tobacco Use Types Packs/Day Years [...] as of this encounter Miscellaneous Notes * Telephone Encounter - Lois Ray - 03/25/2025 2:53 PM EDT [facility] [place] patients PA Denial of request for coverage of Hua Papers. Copy of the papers are in his chart about PA denial * Telephone Encounter - Lois Ray - 03/25/2025 2:05 PM EDT PA Denial alert papers to be filled out from [employer] Copy of the request is in his chart * Telephone Encounter - Mirella Rojas - 03/23/2025 11:19 AM EDT Triage Note 03/23/2025 11:19 AM Sent PA to Cover My Meds. CHAUHAN: [id number] * Telephone Encounter - Alona Bustamante - 03/22/2025 10:26 AM EDT Needs PA on [employer], scanned in vp emerging [employer] documented in this encounter Plan of Treatment Upcoming Encounters Date Type Department Care Team (Late st Contact Info) Description 06/21/2025 2:45 PM EST Office Visit [facility] [address] [place] [address] Catrachita Zapata MD [address] [place] [address] documented as of this encounter [...]
--- OUTSIDE RECORDS SUMMARY | 2025-04-21 12:39 | XMS_ITS | Clinical Summary ---
Author Organization [facility] Address [address] [place] [address] Care Team Providers Care Counseling Program Leader Name Role Phone Joe Freire MD Primary Care Provider [phone] Social History Tobacco Use Types Packs/Day Years Used Date Smoking Tobacco: Never Assessed Abuse Screen Answer Date Recorded Unsafe at Home or Work/School Not on file Feels Threatened by Someone? Not on file 04/2023 Does Anyone Keep You from Co ntacting Others or Doint Things Outside the Home? Not on file 05/13/2023 Physical Sign of Abuse Present Not on file 1 Housing Stability Answer Date Recorded Current Living Arrangements Not on file 04/2023 Potentially Unsafe Housing Conditions Not on hussain e 05/13/2023 Family and Community Support Answer Vic e Recorded Help with Day-to-Day Activities Not on file 05/13/2023 Lonely or Isolated Not on file 05/13/2023 Employment Answer Date Recorded Do you want help finding or keeping work or a beatrice b? Not on file 05/13/2023 Disabilities Answer Date Recorded Concentrating, Remembering, or Making Decisions Difficulty Not on file 05/13/2023 Doing Errands Independently Difficulty Not on fi le 05/13/2023 Education Answer Date Recorded Help with school or training? Not on file Preferred Language Not on file 05/13/2023 Sex and Gender Information Value Date Recorded Sex Assigned at Not on file Legal Sex Male 12:36 PM EDT Gender Identity Not on file Sexual Orientation Not on file Plan of Treatment Health Maintenance Due Date Last Done Comments TDAP/TD VACCINES (1 - Tdap) 1978 COLOGUARD 2004 COLON CANCER SCREENING [address] COLONOGRAPHY 2004 FECAL OCCULT BLOOD TEST 2004 FIT Testing (1 year) 2004 Pneumococcal Vaccine 50+ (1 of 1 - PCV) 2009 ZOSTER VACCINE (1 of 2) 2009 ANNUAL PHYSICAL 07/04/2017 HEPATITIS C SCREENING 07/04/2017 AAA SCREEN ONCE 2024 COVID-19 Vaccine ( season) 2025 INFLUENZA VACCINE 05/05/2025 COLONOSCOPY 07/01/2027 07/01/2017 COLORECTAL CANCER SCREENING 07/01/2027 Procedures Procedure Name Priority Date/Time Associated Diagnosis Comments COLONOSCOPY Routine 07/01/2017 from Last 3 Months or Most Recently Relevant to Health Maintenance Results * Colonoscopy (07/01/2017) Fam Avery MD SURGICAL HISTORY PROCEDURES Fi nal Result from Last 3 Months or Most Recently Relevant to Health Maintenance Insurance [employer] Care Teams Counseling Program Leader Relationship Specialty Start Date End Date Joe Freire MD PCP - General Family Medicine 06/03/17
--- OUTSIDE RECORDS SUMMARY | 2025-04-21 12:39 | XMS_ITS | Encounter Summary ---
Author Organization Healthcare Address [address] [place] [address] Care Team Providers Care Dormitory Keeper Name Role Phone Unavailable Primary Care Provider Unavailabl e Encounter Details Date Type Department Care Team (Latest Contact Info) Description 03/22/2025 Travel Social History Tobacco Use Types Packs/Day [...] EST Office Visit [facility] [address] [place] [address] Catrachita Zapata MD [address] [place] [address] documented as of this encounter [...]
--- OUTSIDE RECORDS SUMMARY | 2025-04-21 12:39 | XMS_ITS | Encounter Summary ---
Author Organization Healthcare Address [address] [place] [address] Care Team Providers Care Continuous Towel Roller Name Role Phone Unavailable Primary Care Provider Unavailabl e Encounter Details Date Type Department Care Team (Latest Contact Info) Description 03/02/2025 Travel Social History Tobacco Use Types Packs/Day [...] EST Office Visit [facility] [address], [address] [place] [address] Catrachita Zapata MD [address] [place] [address] documented as of this encounter [...]
--- OUTSIDE RECORDS SUMMARY | 2025-04-21 12:39 | XMS_ITS | Clinical Summary ---
Author Organization [facility] Address [address] [place] [address] Care Team Providers Care Production Line Welder Name Role Phone Unavailable Primary Care Provider Unavailabl e Allergies Active Allergy Reactions Criticality Noted Date Comments Ciprofloxacin Other - please docum ent in the comment field Low 05/05/2013 Other Rash Low 07/16/2013 Quinolones Unknown - Patient st ates they do not know rxn details Low 09/01/2013 Medications * This document contains information received from the source organization and may not represent a complete record from that organization. latanoprost (Xalatan) 0.005 % ophthalmic solution Administer 1 drop into both eyes nightly. 7.5 mL 3 5 01/19/20 26 Active cyanocobalamin 1000 MCG tablet Take 1 tablet by mouth daily. Active Perfluorohexylo ctane (Miebo) 1.338 GM/ML solution Administer 1 drop into affected eye(s) 4 times a day. 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 Cystoid nevus of conjunctiva of right eye 2019 Epiretinal membrane, both eyes 05/09/2020 Family history of macular degeneration 0 Apnea, sleep 05/09/2020 Bilateral presbyopia 06/22/2019 Ocular migraine 02/21/2018 Nuclear senile cataract 02/21/2018 AC joint pain 12/04/2017 Right rotator cuff tendonitis 12/04/2017 Bilateral primary osteoarthritis of knee 017 Cough 12/14/2015 Chronic prostatitis 09/29/2015 Enlarged prostate 09/29/2015 Dry eye 06/15/2015 Vitreous floaters 06/15/2015 Nevus of left eye 06/15/2015 Refractive error 06/15/2015 Inguinal hernia 06/23/2014 Inguinodynia 06/23/2014 Glaucoma 09/03/2013 Pruritus ani 09/01/2013 Encounters Date Type Department Care Team Description 04/15/2025 12:10 PM EDT Office Visit [facility] [address] [place] [address] Imelda Marquez, UMAIR Subjective hearing loss (Primary Dx); History of impacted cerumen 04/15/2025 Travel 04/14/2025 10:20 AM EDT Consult [facility] [address] [place] [address] Jarocho Delgado MD Impacted cerumen of left ear (Primary Dx) 04/14/2025 Travel 03/22/2025 8:15 AM EDT Office Visit [facility] [address], [address] [place] [address] Catrachita Zapata MD Visual field loss (Primary Dx); Optic neuropathy; Normal tension glaucoma of both eyes, mild stage; Dry eye; Combined form of age-related cataract, both eyes; Cystoid nevus of conjunctiva of right eye; Arcus senilis of both corneas; Allergic conjunctivitis of both eyes; Squamous blepharitis of upper and lower eyelids of both eyes; Hyperopia with presbyopia of both eyes 03/22/2025 Telephone [facility] [address], [address] [place] [address] Catrachita Zapata MD Miebo PA 03/22/2025 Travel 03/04/2025 Results Follow-Up [facility] [address], [address] [place] [address] Catrachita Zapata MD 03/02/2025 2:22 PM EDT - 03/02/2025 11:59 PM EDT Hospital Encounter [facility] [address] [place] [address] Visual field loss; Optic neuropathy Discharge Disposition: Home or Self Care 03/02/2025 Travel 02/16/2025 Travel 01/29/2025 Telephone [facility] [address], [address] [place] [address] Catrachita Zapata MD from Last 3 Months Immunizations Immunization Administration Dates Next Due Influenza, Unspecified 04/23/2019,05/11/2016, Influenza, injectable, quadr ivalent, preservative free 05/20/2023,05/19/2021 Influenza, seasonal, injecta ble, preservative free 04/30/2024 Family History Medical History Relation Name Comments AMD (age related macular degeneration) Father Coronary artery disease Father Macular degeneration Father AMD (age related macular degeneration) Mother Cataracts Mother Macular degeneration Mother Relation Name Status Comments Father Mother Social History Tobacco Use Types Packs/Day Years [...] on file Sexual Orientation Not on file Last Filed Vital Signs Vital Sign Reading Time Taken Comments Blood Pressure 133/84 04/14/2025 10:27 AM EDT Pulse 80 04/14/2025 10:27 AM EDT Temperature 36.2 C (97.2 F) 06/03/2023 4:30 PM EDT Respiratory Rate - - Oxygen Saturation 97% 06/03/2023 4:30 PM EDT Inhaled Oxygen Concentration - - Weight 74.8 kg (165 lb) 04/14/2025 10:27 AM EDT Height 175.3 cm (5' 9 ) 04/14/2025 10:27 AM EDT Body Mass Index 24.37 04/14/2025 10:27 AM EDT Plan of Treatment Upcoming Encounters Date Type Department Care Team (Late st Contact Info) Description 06/21/2025 2:45 PM EST Office Visit [facility] [address], [address] [place] [address] Catrachita Zapata MD [address] [place] [address] Health Maintenance Due Date Last Done Comments Dental Oral Exam 1959 Dental X-Ray: Full Mouth 1959 [facility]-Hepatitis C Screening 1959 [facility]-/Child/Adol SDOH Screenings 1959 [facility]- SDOH Screenings 1977 [facility]-Adult SDOH Screenings 1977 [facility]-DTaP,Tdap,and Td Vaccines (1 - Tdap) 1978 Dental Prophylaxis 01/14/1999 07/15/1998, 1 09/06/1997, 10/05/1997, Additional history exists Dental X-Ray: Bitewings 07/07/1999 07/06/1998, 03/27 CT Colonography 2004 Colonoscopy 2004 FIT-DNA 2004 FIT 2004 FOBT 2004 Sigmoidoscopy 2004 [facility]-Colorectal Cancer Screening 2004 [facility]-Pneumococcal Vaccine: 50+ Years (1 of 1 - PCV) 2009 [facility]-Zoster Vaccines (1 of 2) 2009 06/10/2002, 03/16/2002 [facility]-RSV Vaccine: 60+ Years or (1 - Risk 60-74 years 1-dose series) 2019 [facility]-Depression Screening 08/09/2023 08/09/2022 [id number] Vaccine ( - season) 2025 05/05/2022, 12/09/2021, 09/16/2020 [facility]-Influenza Vaccine (#1) 04/05/202504/30, 05/20/2023, 05/05/2022, Additional history exists HPV Vaccines Aged Out No longer eligi ble based on patient's age to complete this topic [facility]-HIB Vaccines Aged Out No longer e ligible based on patient's age to complete this topic [facility]-Hepatitis A Vaccines Aged Out No longer eligible based on patient's age to complete this topic [facility]-IPV Vaccines Aged Out No longer e ligible based on patient's age to complete this topic [facility]-Rotavirus Vaccines Aged Out No lo nger eligible based on patient's age to complete this topic Procedures Procedure Name Priority Date/Time Associated Diagnosis Comments MR HEAD W AND WO IV CONTRAST Routine 03/02/2025 3:24 PM EDT Visual field loss MR ORBITS W AND WO IV CONTRAST Routine 03/02/2025 3:24 PM EDT Visual field loss Optic neuropathy FOLATE, SERUM Routine 02/16/2025 10:40 AM EDT Visual field loss Optic neuropathy HEAVY METALS PANEL 3, WHOLE BLOOD (SO) Routine 02/16/2025 10:40 AM EDT Visual field loss Optic neuropathy VITAMIN B12, SERUM Routine 02/16/2025 10 :40 AM EDT Visual field loss Optic neuropathy VITAMIN B1 (THIAMINE), WHOLE BLOOD (SO) Routine 02/16/2025 10:40 AM EDT Visual field loss Optic neuropathy CREATININE, PLASMA STAT 02/16/2025 10 :40 AM EDT Optic neuropathy PROPHYLAXIS - CHILD Routine 07/15/1998 1 2:00 AM EST BITEWINGS - 4 RADIOGRAPHIC IMAGES Routine 07/06/1998 12:00 AM EST from Last 3 Months or Most Recently Relevant to Health Maintenance Results * MR Orbits w and wo IV [...] IMG MRI PROCEDURES Final Result * MR Head w and wo IV [...] on 03/03/2025 7:44 PM Catrachita Zapata MD [facility] MRI PROCEDURES Final Result * Heavy Metals Panel 3, Blood (02/16/2025 10:40 AM EDT) Arsenic, Whole Blood <10.0 <=12.0 ug/L 02/17/2025 11:56 PM EDT [facility] ([facility]) Mercury, Whole Blood <2.5 <=10.0 ug/L 02/17/2025 11:56 PM EDT [facility] ([facility]) Lead, Whole Blood (Venous) <2.0 <=4.9 ug/dL 02/17/2025 11:56 PM EDT [facility] ([facility]) Blood Venipuncture / Unknown 02/16/2025 10:40 AM EDT 02/16/2025 10:40 AM EDT Narrative [facility] ([facility]) - 02/17/2025 11:56 PM EDT INTERPRETIVE INFORMATION: [...] developed and its performance characteristics determined by [facility]. It has not been cleared or approved [...] developed and its performance characteristics determined by [facility]. It has not been cleared or approved [...] developed and its performance characteristics determined by [facility]. It has not been cleared or approved by the [place] Food and Drug Administration. This test was performed in a CLIA certified laboratory and is intended for clinical purposes. Performed By: [facility] [address] [place] [id number] Riveter: Charan Monet MD, PhD CLIA Number: [id number] Catrachita Zapata MD LAB BLOOD ORDERABLES Final Resul t [facility]) [address] [place] [address] * Creatinine, Plasma (02/16/2025 10:40 AM EDT) Creatinine, Plasma 0.78 0.70 - 1.20 mg/dL 02/16/2025 11:53 AM EDT [facility] eGFRcr 99.0 mL/min/1.7 3m*2 02/16/2025 11:53 AM EDT [facility] Comment:Reported eGFRcr in m L/min/1.73m2 is based the CKD-EPI 2020 equation that does not use a race coefficient. Blood Venous blood specimen / Unknown Venipuncture / Unknown 02/16/2025 10:40 AM EDT 02/16/2025 10:40 AM EDT Catrachita Zapata MD LAB BLOOD ORDERABLES Final Resul t [facility] [address] [place] [address] * Vitamin B1 (Thiamine), Whole Blood (02/16/2025 10:40 AM EDT) VITAMIN B1, WHOLE BLOOD 159 70 - 180 nmol/L 02/19/2025 12:41 AM EDT [facility] Blood Venous blood specimen / Unknown Venipuncture / Unknown 02/16/2025 10:40 AM EDT 02/16/2025 10:40 AM EDT Narrative [facility] - 02/19/2025 12:41 AM EDT INTERPRETIVE INFORMATION: Vitamin B1, Whole Blood This assay measures the concentration of thiamine diphosphate (TDP), the primary active form of vitamin B1. Approximately 90 percent of vitamin B1 present in whole blood is TDP. Thiamine and thiamine monophosphate, which comprise the remaining 10 percent, are not measured. This test was developed and its performance characteristics determined by [facility]. It has not been cleared or approved by the [place] Food and Drug Administration. This test was performed in a CLIA certified laboratory and is intended for clinical purposes. Performed By: [facility] [address] [place] [id number] Riveter: Charan Monet MD, PhD CLIA Number: [id number] Catrachita Zapata MD LAB BLOOD ORDERABLES Final Resul t Performing Organization Address City/[facility]/ZIP Co de Phone Number [facility] ([facility]) [address] [place] [address] * Folate, Serum (02/16/2025 10:40 AM EDT) Folate, Serum 19.1 >4.6 ng/mL 02/16/2025 12:43 PM EDT [facility] Blood Venous blood specimen / Unknown Venipuncture / Unknown 02/16/2025 10:40 AM EDT 02/16/2025 10:40 AM EDT Catrachita Zapata MD LAB BLOOD ORDERABLES Final Resul t Performing Organization Address [facility]/ZIP Co de Phone Number [facility] [address] [place] [address] * Vitamin B12, Serum (02/16/2025 10:40 AM EDT) Vitamin B12, Serum 272 210 - 1,033 pg/mL 02/16/2025 12:43 PM EDT [facility] Blood Venous blood specimen / Unknown Venipuncture / Unknown 02/16/2025 10:40 AM EDT 02/16/2025 10:40 AM EDT Catrachita Zapata MD LAB BLOOD ORDERABLES Final Resul t Performing Organization Address City/[facility]/ZIP Co de Phone Number [facility] [address] [place] [address] from Last 3 Months Insurance
--- OUTSIDE RECORDS SUMMARY | 2025-04-21 12:39 | XMS_ITS | Encounter Summary ---
Author Organization [facility] Address [address] [place] [address] Care Team Providers Care Production Pattern Maker Name Role Phone Unavailable Primary Care Provider Unavailabl e Encounter Details Date Type Department Care Team (Late st Contact Info) Description 03/04/2025 Results Follow-Up [facility] [address], [address] [place] [address] Catrachita Zapata MD [address] [place] [address] Social History Tobacco Use Types Packs/Day Years [...] as of this encounter Miscellaneous Notes * Result Encounter Note - Catrachita Zapata MD - 03/04/2025 9:43 AM EDT Please call patient and let him know that his MRI was OK. He should continue Lumigan drops each eye at night and continue vitamin B12 supplement and should follow up as planned. documented in this encounter Plan of Treatment Upcoming Encounters Date Type Department Care Team (Late st Contact Info) Description 06/21/2025 2:45 PM EST Office Visit [facility] [address], [address] [place] [address] Catrachita Zapata MD [address] [place] [address] documented as of this encounter [...]
== END 2025-04-20 23:59 | disposition home or self-care (01) ==
LOC: LAB.DROPOF 04-21 12:37
PROVIDERS: PCP Internal Medicine; Visit Provider Internal Medicine
DX: R05.9 Cough, unspecified (principal); R52 Pain, unspecified; H93.8X9 Other specified disorders of ear, unspecified ear
CPT/HCPCS: 87631

== ENCOUNTER 2025-06-02 07:44 | Outpatient (CLI) | payer OTHER, SELFPAY ==
--- OUTSIDE RECORDS SUMMARY | 2025-04-14 10:20 | XMS_ITS | Encounter Summary ---
Author Organization Healthcare Address [address] [place] [address] Care Team Providers Care Field Mechanic Name Role Phone Unavailable Primary Care Provider Unavailabl e Reason for Visit * Reason Comments Cerumen Impaction Encounter Details Date Type Department Care Team (Late st Contact Info) Description 04/14/2025 10:20 AM EDT Consult [facility] Ot[facility]ology [address] [place] [address] Jarocho Delgado MD [address] [place] [address] Impacted cerumen of left ear [...] Care Team (Late st Contact Info) Description 06/17/2025 8:30 AM EST Office Visit [facility] Audiology [address] [place] [address] Yakelin Guerrero, AuD [address] [place] [address] 06/17/2025 9:00 AM EST Office Visit [facility] Otolaryngology [address] [place] [address] Imelda Marquez, MACHINE OPERATOR REPLANTER [address] [place] [address] 06/21/2025 2:45 PM EST Office Visit [facility] [address], [address] [place] [address] Catrachita Zapata MD [address] [place] [address] documented as of this encounter Visit Diagnoses [...]
--- OUTSIDE RECORDS SUMMARY | 2025-04-15 12:10 | XMS_ITS | Encounter Summary ---
Author Organization Healthcare Address [address] [id number] Care Team Providers Care Trailer Assembler Name Role Phone Unavailable Primary Care Provider Unavailabl e Encounter Details Date Type Department Care Team (Late st Contact Info) Description 04/15/2025 12:10 PM EDT Office Visit [facility]ol[facility]ology [address] [place] [address] Imelda Marquez APRN [address] [place] [address] Subjective hearing loss (Primary Dx); History of impacted cerumen Social History Tobacco Use Types Packs/Day Years [...] encounter Miscellaneous Notes * Progress Notes - Imelda Marquez APRN - 04/15/2025 12:10 PM EDT Otology & Neurotology Clinic -- [facility] [address] [facility] [address] Return Patient Visit HPI: 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 He was seen by Dr. Delgado yesterday and cerumen impactions were removed. Interval otologic history since last clinic visit: He presents today with persistent hearing loss despite the removal of cerumen yesterday. He wanted to ensure that his ears were completely clear. He denies otalgia or otorrhea. Denies ear fullness. Otologic History (portions may be carried forward from prior visits): Impacted cerumen Audiogram--none on file Physical Exam Cardiovascular: no peripheral cyanosis Pulmonary: breathing quietly, no stridor or stertor Otoscopy: binocular otomicroscopy was performed in lieu of handheld otoscopy Binocular otomicroscopy procedure was performed. The indication was hearing loss. The patient was positioned supine and an ear speculum was inserted. The microscope was used to inspect the right ear,then the same procedure was performed on the left. The patient tolerated the procedure well. Findings: RIGHT ear canal patent, clear, and without infection and the tympanic membrane intact with no retraction, infection, or effusion LEFT ear canal patent, clear, and without infection and the tympanic membrane is intact with no retraction, infection, or effusion Assessment & Plan: 1. Subjective hearing loss 2. 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 His ear canals and tympanic membranes are completely clear without evidence of cerumen or infectiontoday. Because he is reporting persistent hearing loss, I would recommend that he return to clinic on a scheduled basis with an audiogram in the near future. I offered to schedule that for him today but he would like to reach back out to us to schedule. He may follow up with Dr. Delgado or myself at that time. Imelda Marquez APRN documented in this encounter Plan of Treatment Upcoming Encounters Date Type Department Care Team (Late st Contact Info) Description 06/17/2025 8:30 AM EST Office Visit [facility] Audiology [address] [place] [id number] Yakelin Guerrero, AuD [address] [place] [address] 06/17/2025 9:00 AM EST Office Visit [facility] Ot[facility]ology [address] [place] [address] Imelda Marquez, MICA LAMINATING MACHINE FEEDER [address] [place] [address] 06/21/2025 2:45 PM EST Office Visit [facility] [address], [address] [place] [address] Catrachita Zapata MD [address] [place] [address] documented as of this encounter Visit Diagnoses Diagnosis Subjective hearing loss- Primary History of impacted cerumen documented in this encounter Additional Health Concerns Assessment Noted Time A fall risk assessment has been complete d for the patient 08/09/2022 8:26 AM EST A Body Mass Index follow-up plan has been documented for the patient 04/15/2025 12:23 PM EDT documented as of this encounter
--- OUTSIDE RECORDS SUMMARY | 2025-05-25 11:20 | XMS_ITS | Encounter Summary ---
Author Organization [facility] Address [address] [place] [address] Care Team Providers Care Mortgage Processing Clerk Name Role Phone Unavailable Primary Care Provider Unavailabl e Encounter Details Date Type Department Care Team (Late Contact Info) Description 05/25/2025 11:20 AM EDT Immunization [facility] [address] [place] [id number] Flu vaccine need (Primary Dx) Social History Tobacco Use Types [...] Description 06/17/2025 8:30 AM EST Office Visit [facility] Audiology [address] [place] [id number] Yakelin Guerrero, AuD [address] [place] [address] 06/17/2025 9:00 AM EST Office Visit [facility] Otolaryngology [address] [place] [address] Imelda Marquez, ROLLWAY MAN [address] [place] [address] 06/21/2025 2:45 PM EST Office Visit [facility] [address] [place] [address] Catrachita Zapata MD [address] [place] [address] documented as of this encounter Visit Diagnoses Diagnosis Flu vaccine need- Primary documented in this encounter Additional Health Concerns Assessment Noted Time A fall risk assessment has been complete d for the patient 08/09/2022 8:26 AM EST A Body Mass Index follow-up plan has been documented for the patient 04/15/2025 12:23 PM EDT documented as of this encounter
--- OUTSIDE RECORDS SUMMARY | 2025-06-02 07:47 | XMS_ITS | Clinical Summary ---
Author Organization [facility] Address [address] [place] [address] Phone Care Team Providers Care Sail Finisher Machine Name Role Phone Unavailable Unavailable Conditions or Problems No information available. Medications No information available. Medications Administered No information available. Allergies, Adverse Reactions, Alerts No information available. Results No information available. Plan of Care No information available. Procedures No information available. Vital Signs No information available. Immunizations No information available. Advance Directives No information available.
--- OUTSIDE RECORDS SUMMARY | 2025-06-02 07:47 | XMS_ITS | Continuity of Care Document ---
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 Referral None recorded. Procedures None recorded. Surgeries None recorded. Imaging None recorded. Medication Orders None recorded. Patient TargetsNo targets recorded. Patient Instructions Encounter Date Encounter Id Patient Instructions Last Modified By Organization Details Last Modified Time 06/01/2025 [id number] Education/alt/ri s ks/benefits/SE of Dx & Tx discussed. Daily UV protection with broad-spectrum SPF 30+ on exposed areas recommended. Pt encouraged to RTC with any new/changing lesions. Not available 05/31/2025 11:30:21 Reason for Referral None Reported. Problems Name Problem SNOMED Code Status Onset Date Resolution Date Notes Provider Name and Address Organization Details Recorded Time Chronic prostatit is 40964333 Active 2015 From Automated Load;Provi hannah: Josse Blackburn Jr;Marie tus: Active Not Available [facility] 6 09:37:43 Impotence Active 2015 From Automated Load;Provi hannah: Josse Blackburn Jr;Sta tus: Active Not Available [facility] 6 09:37:43 Large prostate 532362314 Active 2015 From Automated Load;Provi hannah: Josse Blackburn Jr;Sta tus: Active Not Available [facility] 6 09:38:14 Cough 07512532 Active 2015 From Automated Load;Provi hannah: Jarocho Hauser III;St atus: Active Not Available [facility] 6 09:38:14 Difficult y speaking Active 2015 From Automated Load;Provi hannah: Jarocho Hauser III;St atus: Active Not Available [facility] 6 09:38:14 Varicocel e 47213643 Active 2023 [place] [address] [place] [address], [address] , [facility] 4 13:44:58 Problem Notes None recorded. Procedures Surgical History Date Name Laterality Status Provider Name and Address Organization Details Recorded Time 5 Biopsy Skin Lesion; Tangential completed Agatha Pereira [facility] 09/08/2024 16:04:33 4 Biopsy Skin Lesion; Tangential [place], [address], [facility] 03/02/2024 08:44:48 1 Shave Lesion; scalp, neck, hand, foot, genitalia completed Kasey [place] [facility] 03/09/2021 10:42:55 0 Shave Lesion; scalp, neck, hand, foot, genitalia [place], [address], [facility] 06/16/2020 13:22:02 9 Biopsy Penile Lesion [facility] [place], [address], [facility] 04/24/2019 17:05:13 8 Cerumen removal - Instruments, Unilateral completed MINH HUGO, RETOUCHING OPERATOR [address] [place], [address], [facility] 06/19/2018 10:04:21 Imaging Results None recorded. Procedure Notes None recorded. Medical Equipment None Reported. Allergies Allergen ID Allergen Name Allergen Category Reaction Reaction Severity Criticality Documentation Date Start Date Code Code System Note Provider Name and Address Organization Details Recorded Time 996835 Cipro medicatio n Not available Not available Not available 06/29/2016201256 3 RxNorm Comme nt: Creat ed By: Danny weems Date: 2012 10:03 :44 AM; Not Available [facility] 6 09:56:25 473455 Bactrim medicatio n itching Not available Not available 05/11/2019 54169 9 [facility]Norm [facility] 13:24:25 Medications Name Sig Start Date Stop Date Status Note LastModified by Organization Details LastModified Time Prescript ion - Renewal 12/28 completed Not Available Not Available Not Available ivermecti n 3 mg tablet Take by oral route for 7 days. 11/26 completed Not Available Not Available Not Available fosfomyci n trometham ine 3 gram oral packet Take 1 packet by oral route as directed . 09/08 completed Not Available Not Available Not Available fluconazo le 150 mg tablet Take 2 tablets by mouth now, then repeat in 7 days. 2024 active Not Available Not Available Not Avai lable valacyclo vir 1 gram tablet Take 1 tablet by mouth once daily 2023 active Not Available Not Available Not Avai lable fluticaso ne propionat e 0.05 % topical cream APPLY A THIN LAYER TO THE AFFECTED AREA(S) BY TOPICAL ROUTE TWICE DAILY PRN ; RUB IN GENTLY AND COMPLETE LY 2024 active Not Available Not Available Not Avai lable promethaz ine 12.5 mg tablet Take 1 tablet 4 times a day by oral route as directed . 03/02 completed Not Available Not Available Not Available pimecroli mus 1 % topical cream APPLY A THIN LAYER TO THE AFFECTED AREA(S) BY TOPICAL ROUTE 2 TIMES PER DAY NEEDED ; RUB IN GENTLY AND COMPLETE LY 12/08 completed Not Available Not Available Not Available permethri n 5 % topical cream APPLY (THOROUG HLY MASSAGE INTO SKIN FROM HEAD TO SOLES OF FEET) BY TOPICAL ROUTE ONCE LEAVE ON FOR 8-14 HR, THEN REMOVE BY THOROUGH WASHING. REPEAT IN 1 WEEK. 03/02 completed Not Available Not Available Not Available valacyclo vir 500 mg tablet TAKE 1 TABLET(S ) EVERY DAY BY ORAL ROUTE. 03/14 completed Not Available Not Available Not Available tramadol 50 mg tablet Take 1 tablet every 6 hours by oral route as directed for 10 days. 01/05 completed Not Available Not Available Not Available triamcino lone acetonide 0.1 % topical cream APPLY A THIN LAYER TO THE AFFECTED AREA(S) BY TOPICAL ROUTE 2 TIMES PER DAY 03/14 completed Not Available Not Available Not Available terbinafi ne HCl 250 mg tablet Take 1 tablet every day by oral route for 84 days. 2024 active Not Available Not Available Not Avai lable famciclov ir 500 mg tablet TAKE 4 TABLETS 1 DOSE AT START OF ONSET 03/02 completed Not Available Not Available Not Available doxycycli ne monohydra te 100 mg capsule Take 1 capsule twice a day by oral route for 21 days. 02/15 completed Not Available Not Available Not Available nystatin- triamcino lone 100,000 unit/g-0. 1 % topical cream Apply thin layer to rash in armpits twice daily up to 2 weeks 2024 active Not Available Not Available Not Avai lable hydrocort isone 2.5 % topical cream APPLY A THIN LAYER TO THE AFFECTED AREA ONCE DAILY NEEDED FOR ITCHING 2024 active Not Available Not Available Not Avai lable Viagra 100 mg tablet As needed 10/06 completed Instruct ions: 1/2 to 1 tab as needed for ED;Frequ ency: prn;Medi cation Descript ion: sildenaf il; Dosage:1 ; Route:or al; refills: 11; Quantity :6 tablet Not Available Not Available Not Available ketoconaz ole 2 % topical cream APPLY TO THE AFFECTED AREA(S) BY TOPICAL ROUTE TWICE DAILY 11/26 completed Not Available Not Available Not Available clindamyc in phosphate 1 % topical solution APPLY A THIN LAYER TO THE AFFECTED AREA(S) OF GROIN BY TOPICAL ROUTE 2 TIMES PER DAY FOR 2-4 WEEKS 04/12 completed Not Available Not Available Not Available Bactrim DS 800 mg-160 mg tablet Take 1 tablet every 12 hours by oral route for 7 days. 01/05 completed Pt no longer taking Not Available Not Available Not Available tadalafil 20 mg tablet Take 1 tablet by oral route as directed . 09/08 completed NOT TAKING, PER PT 03-02-24 Not Available Not Available Not Available sildenafi l (pulmonar y hypertens ion) 20 mg tablet Take by oral route for 18 days. 2024 active Not Available Not Available Not Avai lable clobetaso l Two times a day 06/19 completed Duration : 14 days;Ins truction s: Apply to the affected area twice daily.;F requency : bid;Medi cation Descript ion: clobetas ol topical; Dosage:1 ; Route:to pical; refills: 3; Quantity :15 ointment Not Available Not Available Not Available Lumigan 0.01 % eye drops INSTILL 1 DROP INTO AFFECTED EYE(S) BY OPHTHALM IC ROUTE ONCE DAILY INTHE EVENING active Not Available Not Available No t Available Vitals None Recorded Social History Question Answer Notes LastModified by Organizat ion Details LastModified Time Tobacco Smoking Status Former Smoker Megan Ramey [facility] 08/16/2017 10:18:58 How Much Tobacco Do You Chew? None [email or web address] Information not available 02/01/2021 What Was The Date Of Your Most Recent Tobacco Screening? 06/26/2024 [email or web address] Information not available 06/26/2024 Has Tobacco Cessation Counseling Been Provided? No [email or web address] Information not available 02/24/2021 Have You Recently Traveled Abroad? No [email or web address] Information not available 02/24/2021 Sex: Male Functional Status Question Answer Note LastModified by Organizat ion Details LastModified Time Do you use any illicit or recreational drugs? No [email or web address] Information not available 02/24/2021 Do you or have you ever used any other forms of tobacco or nicotine? No [email or web address] Information not available 02/24/2021 What is your level of alcohol consumption? Occasional [email or web address] Information not available 08/16/2017 Mental Status None recorded. Family History Nothing Reported. Medical History Condition Response Varicose Veins Y Diabetes N Autoimmune disease N Bleeding Disorder N Squamous Cell Carcinoma N Cancer N Eczema N Melanoma N Glaucoma Y Acne N Skin Problems Y Basal Cell Carcinoma N Skin Cancer Y Anesthesia Complications N Other Skin Condition Y Hypertension N Immunizations Vaccine Type Date Status Note Provider Nam e and Address Organization Details Recorded Time MMR 03/16/2002 completed Not Available [facility] 06/01/2025 13:48:12 varicella 03/16/2002 completed Not Available [facility] 06/01/2025 13:48:12 MMR 06/10/2002 completed Not Available [facility] 06/01/2025 13:48:12 varicella 06/10/2002 completed Not Available [facility] 06/01/2025 13:48:12 Hep B, adult 06/25/2011 completed Not Available [facility] 06/01/2025 13:48:12 Hep B, adult 07/25/2011 completed Not Available [facility] 06/01/2025 13:48:12 Influenza, recombinant, quadrivalent, PF 05/05/2020 completed Not Available [facility] 13:48:12 COVID-19, mRNA, LNP-S, PF, 100 mcg/0.5mL dose or 50 mcg/0.25mL dose 09/16/2020 completed Not Available [facility] 05/06 13:48:12 Influenza, split virus, quadrivalent, PF 05/19/2021 completed Not Available [facility] 13:48:12 COVID-19, mRNA, LNP-S, PF, 100 mcg/0.5mL dose or 50 mcg/0.25mL dose 12/09/2021 completed Not Available [facility] 05/06 13:48:12 COVID-19, mRNA, LNP-S, bivalent, PF, 50 mcg/0.5 mL or 25mcg/0.25 mL dose 05/05/2022 completed Not Available [facility] 13:48:12 Influenza, split virus, quadrivalent, PF 05/05/2022 completed Not Available [facility] 13:48:12 Influenza, split virus, quadrivalent, PF 05/20/2023 completed Not Available [facility] 13:48:12 Influenza, split virus, trivalent, PF 04/30/2024 completed Not Available [facility] 2024 13:48:12 Influenza, high-dose, trivalent, PF 05/25/2025 completed Not Available [facility] 2024 13:48:12 Past Encounters Encounter ID Performer Location Encounter Start Date Encounter Closed Date Diagnosis/Indication Diagnosis SNOMED-CT Code Diagnosis ICD10 Code Diagnosis IMO Codes Diagnosis Note [id number] ZIYAD BURGESS PA-C [facility] [address] [place] [address] 05/13/2025 15:39:21 05/14/2025 09:00:17 History of squamous cell carcinoma in situ 3596013654 9105 Z86.007 17316686 L flank - s/p EDC while he was in [place] September 2024No EORHe was seen by dermatolog ist in [place] for follow up in February and was prescribed imiquimod cream to use for 6 weeksHe is concerned about using medication due to risk of skin irritation .Discussed se/r/b of imiquimod cream. Mutually elect to defer use of medication unless clinical recurrence of skin cancer visible on exam. Will continue to monitor Acute cont act dermatitis 337458966 L25.9 364 b/l axillae. He admits to using an old deodorant in his gym back that he had not been using. He has thrown the product away.I doubt it is fungalWill agree to s/t use of nystatin-t riamcinolo ne up to 2 weeks only. 30 g tube provided Tinea pedis 0470037 B35. 3 77017805 ChronicDis cussed dxWill treat with terbinafin e. Should clear in 2-4 weeks Onychomycosis 545167525 B35.1 23607 Chronic on b/l feet 1st and 2nd toes Tx options discussed topical vs oral medication . He would like to take oral medication .Start terbinafin e 250 mg qd x 12 weeks. se/r/b reviewed. He has no known liver disease No LFTs in chart. His PCP is in [place]. He will have LFTs checked before starting terbinafin e and at 6 week monica Discussed can take 12-18 months for toe nails to fully grow out even with treatment. Printed LFT orders as patient gets his lab work elsewhere. Patient verbalized understand ing of the treatment plan. Genitocrur al intertrigo 760462611 L30.4 76563171 Chronic, clear today with PIHHe is only using talcum powderHe has stopped all topical steroids to inguinal skin including nystatin-t riamcinolo ne, hydrocorti sone 2.5% cream, hydrocorti sone 1% creamHe may use pimecrolim us 1% cream in the future if rash flares again. Avoid topical steroids to this site [id number] ZIYAD BURGESS PA-C [facility]OL[facility] [address] [place] [address] 06/01/2025 13:47:35 06/01/2025 14:44:29 Genitocrural intertrigo 882675447 L30.4 37609409 Chronic, clear today with PIHHe is only using talcum powderHe has stopped all topical steroids to inguinal skin including nystatin-t riamcinolo ne, hydrocorti sone 2.5% cream, hydrocorti sone 1% creamHe may use pimecrolim us 1% cream in the future if rash flares again. Avoid topical steroids to this site He feels the talcum powder is messy looking for a safer alternativ eRecommend ed use of fragrance free happy nuts brand comfort cream to alleviate discomfort from moisture build in inguinal creases. It is talc free Raised adrián orrheic keratosis [id number] 03864 L82.9 [id number] Benign reassuranc eHe has had hx of biopsy proven SK on base of penis. These are new lesions. Discussed genetic predisposi tion and increased number of lesions with aging. Reassured there is no risk of contagion. Health Concerns Section Related Observation LastModified by Organization Detai ls LastModified Time None Recorded Concern Status LastModified by Organization Details LastModified Time None Recorded Payers Encounter Date Sequence Insurance Name Policy Number Policy Neil Covered Member ID Neil Member ID Guarantor Name 06/01/2025 1 [facility] [id number] Nila Ponce [id number] Pastor Horne Notes Date Note Type Note Provider Name and Address Organization Details Recorded Time 06/01/2025 text/html ROS as noted in the HPI Established patientNo changes to allergies or medications since REDDY. Patient presents to clinic today for a rash on groin area. Patient states that this flare of rash has been ongoing for 1 and a half weeks. He states that during this time he has used Lotrimin ultra and OTC hydrocortisone without good benefit. He feels as if he has a fungal infection as the places are black in appearance. Denies any other new, changing, or bleeding lesions, or other rashes, feels well, presents in a good mood. ZIYAD BURGESS PA-C [address] [place], [address], [place] [facility] 06/01/2025 18:28:01
--- OUTSIDE RECORDS SUMMARY | 2025-06-02 07:47 | XMS_ITS | Clinical Summary ---
Author Organization Healthcare Address [address] [place] [address] Care Team Providers Care Felter Tennis Balls Name Role Phone Unavailable Primary Care Provider [...] Optic neuropathy 01/18/2025 Visual field loss 01/18/2025 Normal tension glaucoma of both eyes, mild stage 07/14/2023 Trigger finger, right middle finger 08/09/2022 Subconjunctival hemorrhage of right eye 05/15/20 21 Squamous blepharitis of uppe r and lower eyelids of both eyes 02/09/2021 Allergic conjunctivitis of both eyes 02/09/2021 Corneal arcus senilis 05/09/2020 Cystoid nevus of conjunctiva of right eye 2019 Epiretinal membrane, both eyes 05/09/2020 Family history of macular degeneration 0 Apnea, sleep 05/09/2020 Ocular migraine 02/21/2018 Nuclear senile cataract 02/21/2018 AC joint pain 12/04/2017 Right rotator cuff tendonitis 12/04/2017 Bilateral primary osteoarthritis of knee 017 Chronic prostatitis 09/29/2015 Enlarged prostate 09/29/2015 Dry eye 06/15/2015 Vitreous floaters 06/15/2015 Nevus of left eye 06/15/2015 Refractive error 06/15/2015 Inguinal hernia 06/23/2014 Inguinodynia 06/23/2014 Glaucoma 09/03/2013 Pruritus ani 09/01/2013 Resolved Problems Problem Noted Date Diagnosed Date Resolved Date Hyperopia with presbyopia of both eyes 07/15/2023 04/25/2025 Combined form of age-related cataract, both eyes 05/09/2020 04/25/2025 Bilateral presbyopia 06/22/2019 025 Cough 12/14/2015 04/25/2025 Encounters Date Type Department Care Team Description 05/25/2025 11:20 AM EDT Immunization [facility] [address] [place] [phone] Flu vaccine need (Primary Dx) 04/15/2025 12:10 PM EDT Office Visit [facility] Otolaryngology [address] [place] [address] Imelda Marquez APRN Subjective hearing loss (Primary Dx); History of impacted cerumen 04/15/2025 Travel 04/14/2025 10:20 AM EDT Consult [facility] Otolaryngology [address] [place] [address], [address] [place] [address] Jarocho Delgado MD Impacted cerumen of left ear (Primary Dx) 04/14/2025 Travel 03/22/2025 8:15 AM EDT Office Visit [facility] [address], [address] [place] [address] Catrachita Zapata MD Visual field [...] eyes 03/22/2025 Telephone [facility] [address], [address] [place] [address] Catrachita Zapata MD Miebo PA 03/22/2025 Travel 03/04/2025 Results Follow-Up [facility] [address] [place] [address] Catrachita Zapata MD 03/02/2025 2:22 PM EDT - 03/02/2025 11:59 PM EDT Hospital Encounter [facility] [address] [place] [address] Visual field loss; Optic neuropathy Discharge Disposition: Home or Self Care 03/02/2025 Travel from Last 3 Months Immunizations Immunization Administration Dates Next Due Influenza, High-dose, Split Virus, Trivalent, Injectable, preservative free 05/25/2025 Influenza, Unspecified 04/23/2019,05/11/2016, Influenza, injectable, quadr ivalent, [...] 06/17/2025 8:30 AM EST Office Visit [facility] Audiology [address] [place] [address] Yakelin Guerrero, AuD [address] [place] [address] 06/17/2025 9:00 AM EST Office Visit [facility] Otolaryngology [address] [place] [address] Imelda Marquez, CONVERTING TECHNICIAN [address] [place] [address] 06/21/2025 2:45 PM EST Office Visit [facility] [address], [address] [place] [address] Catrachita Zapata MD [address] [place] [address] Health Maintenance Due Date Last Done Comments Dental Oral Exam 1959 Dental X-Ray: Full Mouth 1959 [facility]-Hepatitis C Screening 1960 [facility]-Infant/Child/Adol SDOH Screenings 1960 [facility]- SDOH Screenings 1977 [...] 1-dose series) 2019 [facility]-Depression Screening 08/09/2023 08/09/2022 [id number] Vaccine (2024- season) 2025 05/05/2022, 12/09/2021, 09/16/2020 [facility]-Influenza Vaccine Completed 05/25/2025 , 04/30/2024, 05/20/2023, Additional history exists HPV Vaccines Aged Out [...] PM EDT Visual field loss Optic neuropathy PROPHYLAXIS - CHILD Routine 07/15/1998 [...] Zapata MD IMG MRI PROCEDURES Final Result from Last [address] [facility]
--- OUTSIDE RECORDS SUMMARY | 2025-06-02 07:47 | XMS_ITS | Encounter Summary ---
Author Organization Healthcare Address [address] [place] [address] Care Team Providers Care Airplane Flight Attendant Name Role Phone Unavailable Primary Care [...] Description 06/17/2025 8:30 AM EST Office Visit [facility] Audiology [address] [place] [address] Yakelin Guerrero, AuD [address] [place] [address] 06/17/2025 9:00 AM EST Office Visit [facility] Otolaryngology [address] [place] [address] Imelda Marquez, STATION ENGINEER CHIEF [address] [place] [address] 06/21/2025 2:45 PM EST Office Visit [facility] [address], [address] [place] [address] Catrachita Zapata MD [address] [place] [address] documented as of this encounter [...]
--- OUTSIDE RECORDS SUMMARY | 2025-06-02 07:47 | XMS_ITS | Data Portability ---
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 Going through a divorce Has a varicocele he plans to have treated by urology [email or web address] Not available 01/20/2025 10:04:56 02/09/2025 02/09/2025 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 Going through a divorce Has a varicocele he plans to have treated by urology [email or web address] Not available 02/09/2025 08:44:37 05/13/2025 05/13/2025 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 Going through a divorce Has a varicocele he plans to have treated by urology His PCP is in [place] [email or web address] Not available 05/17/2025 18:14:49 06/01/2025 06/01/2025 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 Going through a divorce Has a varicocele he plans to have treated by urology His PCP is in [place] Not available 05/31/2025 11:30:21 Plan of Treatment Reminders Order Date Submit Date Provider Last Modified By Organization Details Last Modified Time Details Appointments RECHECK 2024 11:45A M JOSSE BLACKBURN MD Not available Not available Not available DERM ESTABLIS HED 2025 03:30P Yodit BURGESS PA-C Not available Not available Not available Lab hepatic function panel, serum 2024 025 [email or web address] [facility], [address] [place] [address], [phone], 05/13/2025 16:34:27 hepatic function panel, serum 2024 025 [email or web address] [facility], [address] [place] [address], [phone], 05/13/2025 16:34:27 Referral None recorded . Procedures None recorded . Surgeries None recorded . Imaging None recorded . Medication Orders nystatin -triamci nolone 100,000 unit/g-0 .1 % topical cream 2024 [facility] [address], [address] [place] [address], [id number], 05/13/2025 17:02:29 terbinaf ine HCl 250 mg tablet 2024 025 [facility] [address], [address] [place] [address], [id number], 05/13/2025 17:02:28 fluconaz ole 150 mg tablet 2024 [facility] [address], [address] [place] [address], [id number], 12/08/2024 16:11:17 Patient TargetsNo targets recorded. Patient Instructions Encounter Date Encounter Id Patient Instructions Last Modified By Organization Details Last Modified Time 12/08/2024 [id number] Education/alt/ri s ks/benefits/SE of Dx & Tx discussed. Daily UV protection with broad-spectrum SPF 30+ on exposed areas recommended. Pt encouraged to RTC with any new/changing lesions. [email or web address] Not available 12/08/2024 11:51:52 01/21/2025 [id number] Education/alt/ri s ks/benefits/SE of Dx & Tx discussed. Daily UV protection with broad-spectrum SPF 30+ on exposed areas recommended. Pt encouraged to RTC with any new/changing lesions. [email or web address] Not available 01/20/2025 10:04:56 02/09/2025 [id number] Education/alt/ri s ks/benefits/SE of Dx & Tx discussed. Daily UV protection with broad-spectrum SPF 30+ on exposed areas recommended. Pt encouraged to RTC with any new/changing lesions. [email or web address] Not available 02/09/2025 08:44:37 05/13/2025 [id number] Education/alt/ri s ks/benefits/SE of Dx & Tx discussed. Daily UV protection with broad-spectrum SPF 30+ on exposed areas recommended. Pt encouraged to RTC with any new/changing lesions. Not available 05/12/2025 14:38:44 06/01/2025 [id number] Education/alt/ri s ks/benefits/SE of Dx & Tx discussed. Daily UV protection with broad-spectrum SPF 30+ on exposed areas recommended. Pt encouraged to RTC with any new/changing lesions. Not available 05/31/2025 11:30:21 Reason for Referral None Reported. Problems Name Problem SNOMED Code Status Onset Date Resolution Date Notes Provider Name and Address Organization Details Recorded Time Chronic prostatit is 15942118 Active 2015 From Automated Load;Provi hannah: Josse Blackburn Jr;Sta tus: Active Not Available [facility] 6 09:37:43 Impotence Active 2015 From Automated Load;Provi hannah: Josse Blackburn Jr;Sta tus: Active Not Available [facility] 6 09:37:43 Large prostate 451486707 Active 2015 From Automated Load;Provi hannah: Josse Blackburn Jr;Sta tus: Active Not Available [facility] 6 09:38:14 Cough 13984874 Active 2015 From Automated Load;Provi hannah: Analisa RUSSO, Jarocho; atus: Active Not Available [facility] 6 09:38:14 Difficult y speaking Active 2015 From Automated Load;Provi hannah: Hauser III, Jarocho;St atus: Active Not Available [facility] 6 09:38:14 Varicocel e 27124234 Active 2023 JOSSE BLACKBURN JR, MD [address] [place], [address] , [facility] 4 13:44:58 Problem Notes None recorded. Procedures Surgical History Date Name Laterality Status Provider Name and Address Organization Details Recorded Time 5 Biopsy Skin Lesion; Tangential completed Agatha Pereira [facility] 09/08/2024 16:04:33 4 Biopsy Skin Lesion; Tangential completed ZIYAD BURGESS PA-C [address] [place], [address], [facility] 03/02/2024 08:44:48 1 Shave Lesion; scalp, neck, hand, foot, genitalia completed Kasey Lugo [facility] 03/09/2021 10:42:55 0 Shave Lesion; scalp, neck, hand, foot, genitalia completed ZIYAD BURGESS PA-C [address] [place], [place], [address] [place] [address], [facility] 06/16/2020 13:22:02 9 Biopsy Penile Lesion completed ZIYAD BURGESS PA-C [address] [place], [place], [address] [place] [address], [facility] 04/24/2019 17:05:13 8 Cerumen removal - Instruments, Unilateral completed MINH ARIAS, [place] [facility] [address] [place], [address], [facility] 06/19/2018 10:04:21 Imaging Results None recorded. Procedure Notes None recorded. Medical Equipment None Reported. Allergies Allergen ID Allergen Name Allergen Category Reaction Reaction Severity Criticality Documentation Date Start Date Code Code System Note Provider Name and Address Organization Details Recorded Time 157212 Cipro medicatio n Not available Not available Not available 06/29/20162012 3 RxNorm Comme nt: Creat ed By: Danny ambrocio;Cande weems Date: 2012 10:03 :44 AM; Not Available [facility] 6 09:56:25 073641 Bactrim medicatio n itching Not available Not available 05/11/2019 62543 9 RxNorm Sanjana Jasmine [facility] 13:24:25 Medications Name Sig Start Date Stop [...] Tobacco Smoking Status Former Smoker Megan Ramey [facility] 08/16/2017 10:18:58 How Much Tobacco Do You Chew? None [email or web address] Information not available 02/01/2021 What Was The Date Of Your Most Recent Tobacco Screening? 06/26/2024 [email or web address] Information not available 06/26/2024 Has Tobacco Cessation Counseling Been Provided? No Information not available 02/24/2021 Have You Recently Traveled Abroad? No Information not available 02/24/2021 Sex: Male Functional Status Question Answer Note LastModified by Organizat ion Details LastModified Time Do you use any illicit or recreational drugs? No [email or web address] Information not available 02/24/2021 Do you or have you ever used any other forms of tobacco or nicotine? No [email or web address] Information not available 02/24/2021 What is your level of alcohol consumption? Occasional [email or web address] Information not available 08/16/2017 Mental Status None recorded. Family History Nothing Reported. Medical History Condition Response Autoimmune disease N Cancer N Melanoma N Skin Cancer Y Squamous Cell Carcinoma N Acne N Skin Problems Y Other Skin Condition Y Bleeding Disorder N Glaucoma Y Anesthesia Complications N Varicose Veins Y Diabetes N Eczema N Basal Cell Carcinoma N Hypertension N Immunizations Vaccine Type Date Status Note Provider Nam e and Address Organization Details Recorded Time MMR 03/16/2002 completed Not Available [facility] 06/01/2025 13:48:12 varicella 03/16/2002 completed Not Available [facility] 06/01/2025 13:48:12 MMR 06/10/2002 completed Not Available [facility] 06/01/2025 13:48:12 varicella 06/10/2002 completed Not Available [facility] 06/01/2025 13:48:12 Hep B, adult 06/25/2011 completed Not Available [facility] 06/01/2025 13:48:12 Hep B, adult 07/25/2011 completed Not Available [facility] 06/01/2025 13:48:12 Influenza, recombinant, quadrivalent, PF 05/05/2020 completed Not Available [facility] 13:48:12 COVID-19, mRNA, LNP-S, PF, 100 mcg/0.5mL dose or 50 mcg/0.25mL dose 09/16/2020 completed Not Available [facility] 05/06 13:48:12 Influenza, split virus, quadrivalent, PF 05/19/2021 completed Not Available [facility] 13:48:12 COVID-19, mRNA, LNP-S, PF, 100 mcg/0.5mL dose or 50 mcg/0.25mL dose 12/09/2021 completed Not Available [facility] 05/06 13:48:12 COVID-19, mRNA, LNP-S, bivalent, PF, 50 mcg/0.5 mL or 25mcg/0.25 mL dose 05/05/2022 completed Not Available [facility] 13:48:12 Influenza, split virus, quadrivalent, PF 05/05/2022 completed Not Available [facility] 13:48:12 Influenza, split virus, quadrivalent, PF 05/20/2023 completed Not Available [facility] 13:48:12 Influenza, split virus, trivalent, PF 04/30/2024 completed Not Available [facility] 2024 13:48:12 Influenza, high-dose, trivalent, PF 05/25/2025 completed Not Available [facility] 2024 13:48:12 Past Encounters Encounter ID Performer Location Encounter Start Date Encounter Closed Date Diagnosis/Indication Diagnosis SNOMED-CT Code Diagnosis ICD10 Code Diagnosis IMO Codes Diagnosis Note [id number] JOSSE BLACKBURN JR, MD [facility] [address] [place] [address] 08/16/2017 10:00:43 08/19/2017 13:57:23 Chronic prostatitis 35667180 N41.1 Benign pro static hyperplasia with outflow obstruction 589225194 N40.1 Impotence 298396852 N52. 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 Uncertain how acquired-- pt denied form or other sexual exposure. Could re-eval if flares to get culture. Will give Famvir, discussed suppressio n. Postinflam matory skin pigmentation change 55464861 L81.8 upper thighs c/w treated tinea cruris [id number] JENNIFER FERNÁNDEZ MD [facility] [address] [place] [phone] 05/14/2018 13:52:40 05/15/2018 13:20:34 Bullous staphylococcal impetigo 502565831 L01.03 Finger. Herpetic Gonzales possible. Pt does not want anything put thru insurance. Discussed but will hold on viral and bacterial cultures, but start suppressiv e Valtrex and still has prn Famvir--wi ll see if occ penile irritation improves. RF fluticason e for occ perineal irritation . Genital he rpes simplex 67874543 A60.9 With hx (+) HSV-2 IgG, this was not acute exposure, but < 1 yr per hx from pt. Uncertain how acquired-- pt denied form or other sexual exposure. Could re-eval if flares to get culture. Will give Famvir, discussed suppressio n. It is possible pt acquired herpetic gonzales in past as cause of (+) HSV-2 IgG. [id number] MINH ARIAS, [facility] [address] [place] [address] 06/19/2018 08:41:11 06/19/2018 11:25:43 Impacted cerumen in left ear 4290235194 770527 H61.22 - felt more open and improved hearing after cerumenect maribell - no evidence of infection or middle ear effusions 06/19/18 Dysfunctio n of bilateral eustachian tubes 2248233453 871591 H69.93 Deviated nasal septum 12 8832919 J34.2 - left, severe Nasal obstruction 830044 000 J34.89 - left 90% obstructio n secondary to deviated septum [id number] JOSSE BLACKBURN JR, MD [address] [place] [address] 12/24/2018 08:52:34 12/24/2018 10:30:36 Large prostate 355713549 N40.0 Chronic prostatitis 1989 5009 N41.1 Impotence 350641280 N52. 9 [id number] JOSSE BLACKBURN JR, MD [address] [place] [address] 03/04/2019 08:53:00 03/09/2019 11:39:34 Chronic prostatitis 42587904 N41.1 Epididymitis 37694995 N4 5.1 [id number] JENNIFER FERNÁNDEZ MD [facility] [address] [place] [address] 03/25/2019 08:32:00 03/25/2019 13:41:32 Intertrigo 06079639 L30.4 better with pigment changes--a pply nystatin and TAC to affected areas as directed (called and switched nystatin/T AC combo to just nystatin cream) Perianal dermatitis 7355 79970 L30.9 may con't occasional fluticason e as directed below Itching of skin 33320282 0 L29.9 back unremarkab le exam, ? notalgia-- try TAC here also [id number] JONNIE SMITH [facility] [address] [place] [id number] 04/24/2019 15:11:48 04/27/2019 10:21:47 Neoplasm of uncertain behavior of skin 55100648 D48.5 shave biopsy with ED to base r/o angiokerat manisha vs SK reassured patient of non-contag ious nature - NOT HSV OR MOLLUSCUM wash with soapy water daily, apply polysporin daily until healed call with result Intertrigo 15854820 L30. 4 better with pigment changes continue nystatin/T AC creams as needed consider tinea incognito if worsens, but rather non-inflam matory exam today Senile hyperkeratosis 39 6503755 L82.1 benign reassuranc e brochure provided Genital he rpes simplex 57458385 A60.9 With hx (+) HSV-2 IgG Continues to do well with suppressiv e valacyclov ir He inquired about need for STD panel today. I told him I did not think it was necessary as he and his are both asymptomat ic. Offered full panel if desired, he declined. with history of infidelity . They are in counseling [id number] MD RIDDHI REEDER [facility] [address] [place] [address] 05/04/2019 16:30:05 05/05/2019 08:37:39 Tinea cruris 419201479 B35.6 vs other. Treated for intertrigo , got better, now ? tinea, early follic, other. Will switch Nystatin to ketoconazo le and stop TAC. Add Bactrim. Bx if worse. No sign 0of STD. [id number] MD RIDDHI REEDER [facility] [address] [place] [address] 05/11/2019 09:39:33 05/11/2019 15:50:01 Allergic reaction to drug 371185765 T50.905A possible to Bactrim--s topped 2 days ago, will call if not better this week. Possible scabies but less likely. Groin/thig h rash better--if worsens may restart doxy instead of Bactrim (doxy was given for prostate problem). Has Valtrex for HSV. Tinea cruris 171373633 B 35.6 vs other. Better with ketoconazo le. Hold on antibiotic s for now. [id number] JOSSE BLACKBURN JR, MD [facility] [address] [place] [address] 07/16/2019 10:46:37 07/16/2019 11:34:13 Kidney stone 82036516 N20.0 Blood in urine 54412642 R31.9 Adult heal th examination 812996062 Z00.00 [id number] JONNIE SMITH [employer] [facility] [address] [place] [address] 06/16/2020 09:37:37 06/16/2020 10:23:27 Raised seborrheic keratosis 4198487204 11198 L82.1 Shave removal x 2 - see procedure note Patient preferred shave removal rather than tx with LN due to location; discussed option to send to pathology with him. I do not feel it is necessary as diagnosis is not in question and he agreed. Pt tolerated procedure well, after care given Skin sensa tion disturbance 56729501 R20.9 [id number] JOSSE BLACKBURN JR, MD [address] [place] [address] 02/01/2021 09:25:54 02/01/2021 15:57:00 Chronic prostatitis 54956731 N41.1 Large prostate 466315326 N40.0 [id number] JOSSE BLACKBURN JR, MD [facility] [address] [place] [address] 02/24/2021 09:24:35 02/24/2021 11:24:41 Chronic prostatitis 03356261 N41.1 Large prostate 200449384 N40.0 [id number] ZIYAD UBRGESS PA-C [facility] [address] [place] [address] 03/09/2021 09:57:33 03/09/2021 11:24:50 Intertrigo 06831529 L30.4 Better with pigment changes continue nystatin-T AC cream as neededstar t drying powder daily, suggestion s provided. He is a little concerned with talcum so I suggested corn starch powder Raised adrián orrheic keratosis 8639958351 23164 L82.1 Shave removal x 1 - see procedure note Patient preferred shave removal rather than tx with LN due to location; discussed option to send to pathology with him. I do not feel it is necessary as diagnosis is not in question and he agreed. Pt tolerated procedure well, after care given Angiokeratoma of skin 25 6214564 D23.9 Numbed and destroyed with ED x 1 - see procedure note Pt tolerated procedure well, after care given [id number] JOSSE BLACKBURN JR, MD [facility] [address] [place] [id number] 03/27/2021 09:50:33 03/27/2021 10:32:54 Benign prostatic hyperplasia with outflow obstruction 106105963 N40.1 Chronic prostatitis 1989 5009 N41.1 [id number] MD RIDDHI REEDER [facility] [address] [place] [id number] 01/05/2022 10:10:39 01/05/2022 10:58:08 Pruritic disorder 646989956 L29.9 Skin is clear todaysudde n onset after mowing last weekpossib le mites vs contactwil l refill permethrin and Ivermectin Herpes simplex 74653869 B00.9 good control on suppressiv e therapy Valtrex 1 g refilled today [id number] ZIYAD BURGESS PA-C [facility] [address] [place] [address] 03/07/2022 10:45:45 03/07/2022 12:11:08 Erythrasma 240263308 L08.1 Clinically favor erythrasma in inguinal foldsWoods lamp positive for red/orange fluorescen ceStart clindamyci n solution as directedRe commended BPO wash in the shower for maintenanc e 2-3 times per weekRoutin e & yeast cultures taken todayF/up as needed Intertrigo 57468665 L30. 4 Clinically favor erythrasma today, not intertrigo Patient requested a year refill of nystatin-t riamcinolo ne for intertrigo flares - he voiced understand ing not to treat his erythrasma with this [id number] JOSSE BLACKBURN JR, MD [facility] [address] [place] [address] 04/12/2022 11:19:46 04/12/2022 12:12:22 Chronic prostatitis 81594568 N41.1 Large prostate 974577019 N40.0 Varicocele 64036004 I86. 1 [id number] JOSSE BLACKBURN JR, MD [facility] [address] [place] [address] 08/08/2023 15:57:35 08/08/2023 16:30:08 Balanitis 89163446 N48.1 Chronic prostatitis 1989 5009 N41.1 Large prostate 466510902 N40.0 Varicocele 68104095 I86. 1 [id number] JENNIFER FERNÁNDEZ MD [facility] [address] [place] [phone] 11/27/2023 08:45:15 11/27/2023 10:21:12 Melanocytic nevus of skin 351641275 D22.9 Reassuranc e and education regarding the disorder and options. [id number] ZIYAD BURGESS PA-C [facility] [address] [place] [address] 03/02/2024 07:39:09 03/02/2024 08:41:21 Intertrigo 83759464 L30.4 Chronic on inguinal skinDx in [address] Paigere ated with nystatin-t riamcinolo ne cream, ketoconazo le 2% cream, Bactrim DSI treated him for erythrasma with clindamyci n 1% solution in 2021. Bacterial and yeast cultures at that time were negative. He was given oral fluconazol e 150 mg qweek x 4 in January 2024. He is currently treating with Gold Montes powder and zince oxide paste. He finds the powder most helpful but needs to use every 2 hours. Recommend skin biopsyR/O intertrigo vs tinea incognito vs erythrasma vs inverse psoriasis Shave biopsy taken today from R inguinal skinConsen t signedPati ent tolerated wellPhoto takenWound care instructio ns given Pending path, start pimecrolim us 1% cream. D/C nystatin-t riamcinolo ne cream. Raised adrián orrheic keratosis 7175859911 59312 L82.1 Benign reassuranc e [id number] JOSSE BLACKBURN JR, MD [facility] [address] [facility] [place] [id number] 05/06/2024 09:05:52 05/06/2024 09:49:31 Prostatitis 6646305 N41.9 Large prostate 658312876 N40.0 [id number] JOSSE BLACKBURN JR, MD [facility] [address] [facility] [place] [id number] 06/26/2024 10:01:07 06/26/2024 11:04:28 Chronic prostatitis 16703394 N41.1 Large prostate 168128653 N40.0 Varicocele 34439702 I86. 1 [id number] ZIYAD BURGESS PA-C [facility] [address] [place] [address] 09/08/2024 15:16:00 09/08/2024 16:07:02 Intertrigo 93886181 L30.4 Chronic on inguinal skinDx in [address] Agudelo rently treating with nystatin-t riamcinolo ne cream. Has also used Gold Montes Powder, zinc oxide paste. Previous prescripti on tx of ketoconazo le 2% cream, Bactrim DS, clindamyci n 1% solution.Y east and bacterial cultures have been negative He was given fluconazol e 150 mg qweek x 4 in January 2024. He said he thinks this calmed it down for a little while. 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 Comes and goes, no cure but tx can help manage appearance /sx Start fluconazol e 300 mg now and repeat in 7 daysWash affected areas with Selsun Blue shampoo leave on 5 minutes and rinse. 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 Comes and goes, no cure but tx can help manage appearance /sx Improvemen t noted with fluconazol e 300 mg qweek x 2. Will repeat in furture prn. He will call if he needs refills. Wash affected areas with Selsun Blue shampoo in showerd/c triamcinol one-nystat in creamResta rt OTC Lotrimin Ultra. Discussed needs to use longer than 2 applicatio ns for benefit. F/up 6 weeks. 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 It has been prescribed by Dr. Fernández. He has not listened to counseling to avoid l/t use.He was given pimecrolim us to try to get him off topical steroidTod ay I had a direct conversati on with him for need to stop topical steroid as it is creating skin changes and the worsening rash he feels he has when he stops nystatin-t riamcinolo ne is likely steroid withdrawal . We will wean him off with hydrocorti sone 2.5% cream. Initially he can apply daily and then taper to every other day and then taper to 1-2 times per week, and then taper to zero. He was counseled that skin redness, itching, pain may result but will be temporary steroid withdrawal signs. f/up 6 weeks [id number] ZIYAD BURGESS PA-C [facility] [address] [place] [address] 12/08/2024 14:28:57 12/08/2024 15:40:40 Pityriasis versicolor 03797680 B36.0 Education on dx. Comes and goes, no cure but tx can help manage appearance /sx Improvemen t noted with fluconazol e 300 mg qweek x 2. Wash affected areas with Selsun Blue shampoo in showerHe restarted nystatin-t riamcinolo ne cream against medical advice. I cancelled his Rx for nystatin-t riamcinolo ne at the pharmacy. This is not something I have been filling for him but came from another provider. He seems obsessive about being infected with a fungus. 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 It has been prescribed by Dr. Fernández previously for intertrigo . He has not listened to counseling to avoid l/t use.He was given pimecrolim us to try to get him off topical steroid but felt it did not help rashMore recently we was given hydrocorti sone to try to taper off triamcinol one but also felt did not help rash Had a direct conversati on with him for need to stop topical steroid as it is creating skin changes and the worsening rash he feels he has when he stops nystatin-t riamcinolo ne is likely steroid withdrawal . We will wean him off with hydrocorti sone 2.5% cream. Initially he can apply daily and then taper to every other day and then taper to 1-2 times per week, and then taper to zero. He can use pimecrolim us 1% cream starting now as well. He was counseled that skin redness, itching, pain may result but will be temporary steroid withdrawal signs. He can also use Vaseline to sooth skin. Discussed he could see permanent discolorat ion of his inguinal skin which may resemble a rash due to chronic l/t use of steroid. 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 Comes and goes, no cure but tx can help manage appearance /sx Improvemen t noted with fluconazol e 300 mg qweek x 2 previously taken in September 2024 Wash affected areas with Selsun Blue shampoo in shower He reports worsening rash after taking fluconazol e 300 mg and is uncertain if allergic reaction. Counseled him do not see signs of allergic reaction to fluconazol e on exam. 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 He can also use Vaseline to sooth skin. Discussed he could see permanent discolorat ion of his inguinal skin which may resemble a rash due to chronic l/t use of steroid. 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 Has not been using the pimecrolim us cream because it caused itching. Explained that has been documented with initial use but usually resolves with continuous use. States he is willing to retry the pimecrolim us.Using Gold Montes Talcum powder daily with menthol Discussed some people will have skin sensitivit y to menthol that can present as itching/bu rning/stin ging. Recommende d menthol free powder suggested Zeasorb or corn starch powder. Discussed trying Sarna sensitive lotion daily as an option to replace topical steroid altogether , even hydrocorti sone 1% cream as feasible. Discussed he could see permanent discolorat ion of his inguinal skin which may resemble a rash due to chronic l/t use of steroid. History of squamous cell carcinoma in situ [id number] 9105 Z86.007 [id number] L flank - s/p EDC while he was in [place] September 2024No Ilana was seen by dermatolog ist in [place] for follow up in February and was prescribed imiquimod cream to use for 6 weeksHe is concerned about using medication due to risk of skin irritation .Discussed se/r/b of imiquimod cream. Mutually elect to defer use of medication unless clinical recurrence of skin cancer visible on exam. Will continue to monitor [id number] ZIYAD BURGESS PA-C [facility] [address] [place] [address] 05/13/2025 15:39:21 05/14/2025 09:00:17 History of squamous cell carcinoma in situ [id number] 9105 Z86.007 [id number] L flank - s/p EDC while he was in [place] September 2024Romina Preciado was seen by dermatolog ist in [place] for follow up in February and was prescribed imiquimod cream to use for 6 weeksHe is concerned about using medication due to risk of skin irritation .Discussed se/r/b of imiquimod cream. Mutually elect to defer use of medication unless clinical recurrence of skin cancer visible on exam. Will continue to monitor Acute cont act dermatitis [id number] L25.9 364 b/l axillae. He admits to using an old deodorant in his gym back that he had not been using. He has thrown the product away.I doubt it is fungalWill agree to s/t use of nystatin-t riamcinolo ne up to 2 weeks only. 30 g tube provided Tinea pedis [id number] B35. 3 [id number] ChronicDis cussed dxWill treat with terbinafin e. Should clear in 2-4 weeks Onychomycosis [id number] B35.1 32401 Chronic on b/l feet 1st and 2nd toes Tx options discussed topical vs oral medication . He would like to take oral medication .Start terbinafin e 250 mg qd x 12 weeks. se/r/b reviewed. He has no known liver disease No LFTs in chart. His PCP is in [place]. He will have LFTs checked before starting terbinafin e and at 6 week monica Discussed can take 12-18 months for toe nails to fully grow out even with treatment. Printed LFT orders as patient gets his lab work elsewhere. Patient verbalized understand ing of the treatment plan. Genitocrur al intertrigo [id number] L30.4 72933204 Chronic, clear today with PIHHe is only using talcum powderHe has stopped all topical steroids to inguinal skin including nystatin-t riamcinolo ne, hydrocorti sone 2.5% cream, hydrocorti sone 1% creamHe may use pimecrolim us 1% cream in the future if rash flares again. Avoid topical steroids to this site [id number] ZIYAD BURGESS PA-C [facility] [address] [place] [address] 06/01/2025 13:47:35 06/01/2025 14:44:29 Genitocrural intertrigo [id number] L30.4 [id number] Chronic, clear today with PIHHe is only [...] is talc free Raised adrián orrheic keratosis [id number] 74365 L82.5 [id number] Benign reassuranc eHe has had hx of biopsy proven SK on base of penis. These are new lesions. Discussed genetic predisposi tion and increased number of lesions with aging. Reassured there is no risk of contagion. Health Concerns Section Related Observation LastModified by Organization Detai ls LastModified Time None Recorded Concern Status LastModified by Organization Details LastModified Time None Recorded Advance Directives Directive None Recorded Payers Insurance Date Sequence Insurance Name Policy Number Policy Neil Covered Member ID Neil Member ID Guarantor Name 02/01/2021 1 [employer] Fernando Horne [id number] Fernando Horne 02/01/2021 1 [employer] (PPO) Fernando Horne [id number] Fernando Horne 02/01/2021 1 [employer] ([employer]) Fernando Horne [id number] Fernando Horne 02/01/2021 1 [employer] Fernando Horne [id number] Fernando Horne 05/21/2018 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 He had responded well to fluconazole at last visit with improvement of rash. He had background changes of steroid atrophy and hyperpigmentation and was strongly advised again to d/c nystatin-triamcinolone cream. He was given alternatives of Lotrimin Ultra and hydrocortisone 2.5% cream to try to step him down slowly off steroid to prevent withdrawal. He says these creams did not work so he restarted nystatin-triamcinolone . Patient is requesting to have site on left flank checked today where he had SCCIS treated in [place] in September. Denies any other new, changing, or bleeding lesions, or other rashes, feels well, presents in a good mood, and has no family history of melanoma. ZIYAD BURGESS PA-C [address] [place], [address], [facility] 12/09/2024 18:56:54 01/21/2025 text/html ROS as noted in the [facility] Established patient Patient presents to clinic today regarding a itching rash of b/l thighs. States that he did discontinue the nystatin-triamcinolone cream, and he did take one dose of fluconazole. He says this rash worsened after 1 dose of fluconazole and wonders if it could be an allergic reaction. He has been using with talc or vaseline on the area. He started the hydrocortisone 1% cream 3-4 days ago, seems to be slightly improved. He is leaving for [place] for 2 weeks this Saturday and would like to know what to do. Denies any other new, changing, or bleeding lesions, or other rashes, feels well, presents in a good mood. ZIYAD BURGESS PA-C [address] [place], [address], [facility] 01/25/2025 18:26:48 02/09/2025 text/html ROS as noted in the [facility] Established patient Patient presents to clinic today for rash follow up. At his last visit he was encouraged to take 2nd dose of fluconazole 7 days after the first dose, he did not take it because of side effects . Is he still using the hydrocortisone 1% cream as needed, has only had to use maybe 3 times since his visit in January. He did not use the pimecrolimus because it caused itching. States that he continues to have a lot of itching/burning on the inguinal skin that he would like to discuss today. While he was in [place] he saw the provider who treated the SCCIS on L flank in September 2024 and she prescribed him Imiquimod cream to use on the site. He has not started it yet because he wanted to have a second opinion first. Denies any other new, changing, or bleeding lesions, or other rashes, feels well, presents in a good mood. ZIYAD BURGESS PA-C [address] [place], [address], [facility] 02/17/2025 18:15:41 05/13/2025 text/html ROS as noted in the [facility] Established patient Patient presents to clinic today for a 3 month follow up. Patient feels his rash in groin has improved and has not had to use the hydrocortisone cream. He is using talcum powder. Patient thinks he has a fungal infection in his axilla R>L and has tried clotrimazole for 4-5 days and Lotrimin. Wants to discuss using Triamcinolone with nystatin cream. He also thinks he has toe nail fungus. Denies any other new, changing, or bleeding lesions, or other rashes, feels well, presents in a good mood. ZIYAD BURGESS PA-C [address] [place], [address], [facility] 05/17/2025 18:15:01 06/01/2025 text/html ROS as noted in the [facility] Established patientNo changes to allergies or medications since [facility]. Patient presents to clinic today for a [...] a good mood. ZIYAD BURGESS PA-C [address] [place], [address], [facility] 06/01/2025 18:28:01
--- OUTSIDE RECORDS SUMMARY | 2025-06-02 07:47 | XMS_ITS | Clinical Summary ---
Author Organization [facility] Address [address] [place] [address] Care Team Providers Care Vegetable Farmer Name Role Phone Joe Freire MD Primary Care Provider [phone] Social History Tobacco Use Types Packs/Day Years [...] C SCREENING 07/04/2017 AAA SCREEN ONCE 2024 INFLUENZA VACCINE 03/05/2025 COVID-19 Vaccine ( season) 2025 COLONOSCOPY 07/01/2027 07/01/2017 COLORECTAL CANCER SCREENING 07/01/2027 Procedures Procedure Name Priority Date/Time Associated Diagnosis Comments COLONOSCOPY Routine 07/01/2017 from Last 3 Months or Most Recently Relevant to Health Maintenance Results * Colonoscopy (07/01/2017) Fam Avery MD SURGICAL HISTORY PROCEDURES Fi nal Result from Last 3 Months or Most Recently Relevant to Health Maintenance Insurance [employer] Care Teams Vegetable Farmer Relationship Specialty Start Date End Date Joe Freire MD PCP - General Family Medicine 06/03/17
--- OUTSIDE RECORDS SUMMARY | 2025-06-02 07:47 | XMS_ITS | Encounter Summary ---
Author Organization Healthcare Address [address] [place] [address] Care Team Providers Care Javascript Programmer Name Role Phone Unavailable Primary Care Provider [...] Description 06/17/2025 8:30 AM EST Office Visit [facility] Audiology [address] [place] [address] Yakelin Guerrero, AuD [address] [place] [address] 06/17/2025 9:00 AM EST Office Visit [facility] Otolaryngology [address] [place] [address] Imelda Marquez, [employer] [address] [place] [address] 06/21/2025 2:45 PM EST Office Visit [facility] [address] [place] [address] Catrachita Zapata MD [address] [place] [address] documented as of this encounter [...]
--- OUTSIDE RECORDS SUMMARY | 2025-06-02 07:47 | XMS_ITS | Continuity of Care Document ---
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 Going through a divorce Has a varicocele he plans to have treated by urology His PCP is in [place] [id number] Not available 05/17/2025 18:14:49 Plan of Treatment Reminders Order Date Submit Date Provider Last Modified By Organization Details Last Modified Time Details Appointments RECHECK 2024 11:45A M JOSSE BLACKBURN MD Not available Not available Not available DERM ESTABLIS HED 2025 03:30P M ZIYAD BURGESS PA-C Not available Not available Not available Lab hepatic function panel, serum 2024 025 [facility], [address] [place] [address], [phone], 05/13/2025 16:34:27 hepatic function panel, serum 2024 025 [email or web address] [facility], [address] [place] [address], [phone], 05/13/2025 16:34:27 Referral None recorded . Procedures None recorded . Surgeries None recorded . Imaging None recorded . Medication Orders nystatin -triamci nolone 100,000 unit/g-0 .1 % topical cream 2024 025 [facility], [address], [place], [address], 05/13/2025 17:02:29 terbinaf ine HCl 250 mg tablet 2024 025 [facility], [address], [place], [address], 05/13/2025 17:02:28 Patient TargetsNo targets recorded. Patient Instructions Encounter Date Encounter Id Patient Instructions Last Modified By Organization Details Last Modified Time 05/13/2025 [id number] Education/alt/ri s ks/benefits/SE of Dx & Tx discussed. Daily UV protection with broad-spectrum SPF 30+ on exposed areas recommended. Pt encouraged to RTC with any new/changing lesions. Not available 05/12/2025 14:38:44 Reason for Referral None Reported. Problems Name Problem SNOMED Code Status Onset Date Resolution Date Notes Provider Name and Address Organization Details Recorded Time Chronic prostatit is Active 2015 From Automated Load;Provi hannah: Josse Blackburn Jr;Sta tus: Active Not Available [facility] 6 09:37:43 Impotence Active 2015 From Automated Load;Provi hannah: Josse Blackburn Jr;Sta tus: Active Not Available [facility] 6 09:37:43 Large prostate 229078220 Active 2015 From Automated Load;Provi hannah: Josse Blackburn Jr;Sta tus: Active Not Available [facility] 6 09:38:14 Cough 25582837 Active 2015 From Automated Load;Provi hannah: Jarocho Hauser III;St atus: Active Not Available [facility] 6 09:38:14 Difficult y speaking Active 2015 From Automated Load;Provi hannah: Jarocho Hauser III;St atus: Active Not Available [facility] 6 09:38:14 Varicocel e 83738706 Active 2023 JOSSE BLACKBURN JR, MD [facility] [place], [address] , [facility] 4 13:44:58 Problem Notes None recorded. Procedures Surgical History Date Name Laterality Status Provider Name and Address Organization Details Recorded Time 5 Biopsy Skin Lesion; Tangential completed Agatha Pereira [facility] 09/08/2024 16:04:33 4 Biopsy Skin Lesion; Tangential completed ZIYAD BURGESS PA-C [address] [place], [address], [facility] 03/02/2024 08:44:48 1 Shave Lesion; scalp, neck, hand, foot, genitalia completed Kasey Lugo [facility] 03/09/2021 10:42:55 0 Shave Lesion; scalp, neck, hand, foot, genitalia completed ZIYAD BURGESS PA-C [address] [place], [address], [facility] 06/16/2020 13:22:02 9 Biopsy Penile Lesion completed ZIYAD BURGESS PA-C [address] [place], [address], [facility] 04/24/2019 17:05:13 8 Cerumen removal - Instruments, Unilateral completed MINH ARIAS APRN [address] [place], [address], [facility] 06/19/2018 10:04:21 Imaging Results None recorded. Procedure Notes None recorded. Medical Equipment None Reported. Allergies Allergen ID Allergen Name Allergen Category Reaction Reaction Severity Criticality Documentation Date Start Date Code Code System Note Provider Name and Address Organization Details Recorded Time 323700 Cipro medicatio n Not available Not available Not available 06/29/2016201256 3 RxNorm Comme nt: Creat ed By: Danny weems Date: 2012 10:03 :44 AM; Not Available [facility] 6 09:56:25 478220 Bactrim medicatio n itching Not available Not available 05/11/2019 71647 9 [facility] 13:24:25 Medications Name Sig Start Date Stop [...] Time Tobacco Smoking Status Former Smoker [facility] 08/16/2017 10:18:58 How Much Tobacco Do You Chew? None [email or web address] Information not available 02/01/2021 What Was The Date Of Your Most Recent Tobacco Screening? 06/26/2024 [email or web address] Information not available 06/26/2024 Has Tobacco Cessation Counseling Been Provided? No [email or web address] Information not available 02/24/2021 Have You Recently Traveled Abroad? No Information not available 02/24/2021 Sex: Male Functional Status Question Answer Note LastModified by Organizat ion Details LastModified Time Do you use any illicit or recreational drugs? No [email or web address] Information not available 02/24/2021 Do you or have you ever used any other forms of tobacco or nicotine? No Information not available 02/24/2021 What is your level of alcohol consumption? Occasional [email or web address] Information not available 08/16/2017 Mental Status None recorded. Family History Nothing Reported. Medical History Condition Response Diabetes N Varicose Veins Y Autoimmune disease N Bleeding Disorder N Squamous Cell Carcinoma N Eczema N Cancer N Melanoma N Glaucoma Y Acne N Skin Problems Y Basal Cell Carcinoma N Skin Cancer Y Anesthesia Complications N Hypertension N Other Skin Condition Y Immunizations Vaccine Type Date Status Note Provider Nam e and Address Organization Details Recorded Time MMR 03/16/2002 completed Not Available [facility] 06/01/2025 13:48:12 varicella 03/16/2002 completed Not Available [facility] 06/01/2025 13:48:12 MMR 06/10/2002 completed Not Available [facility] 06/01/2025 13:48:12 varicella 06/10/2002 completed Not Available [facility] 06/01/2025 13:48:12 Hep B, adult 06/25/2011 completed Not Available [facility] 06/01/2025 13:48:12 Hep B, adult 07/25/2011 completed Not Available [facility] 06/01/2025 13:48:12 Influenza, recombinant, quadrivalent, PF 05/05/2020 completed Not Available [facility] 13:48:12 COVID-19, mRNA, LNP-S, PF, 100 mcg/0.5mL dose or 50 mcg/0.25mL dose 09/16/2020 completed Not Available [facility] 05/06 13:48:12 Influenza, split virus, quadrivalent, PF 05/19/2021 completed Not Available [facility] 13:48:12 COVID-19, mRNA, LNP-S, PF, 100 mcg/0.5mL dose or 50 mcg/0.25mL dose 12/09/2021 completed Not Available [facility] 05/06 13:48:12 COVID-19, mRNA, LNP-S, bivalent, PF, 50 mcg/0.5 mL or 25mcg/0.25 mL dose 05/05/2022 completed Not Available [facility] 13:48:12 Influenza, split virus, quadrivalent, PF 05/05/2022 completed Not Available [facility] 13:48:12 Influenza, split virus, quadrivalent, PF 05/20/2023 completed Not Available [facility] 13:48:12 Influenza, split virus, trivalent, PF 04/30/2024 completed Not Available [facility] 2024 13:48:12 Influenza, high-dose, trivalent, PF 05/25/2025 completed Not Available [facility] 2024 13:48:12 Past Encounters Encounter ID Performer Location Encounter Start Date Encounter Closed Date Diagnosis/Indication Diagnosis SNOMED-CT Code Diagnosis ICD10 Code Diagnosis IMO Codes Diagnosis Note [id number] ZIYAD BURGESS PA-C [facility] [address] [place] [address] 05/13/2025 15:39:21 05/14/2025 09:00:17 History of squamous cell carcinoma in situ 4036249501 9105 Z86.007 [id number] L flank - s/p EDC while he was in [place] September 2024No Ilana was seen by dermatolog ist in [place] for follow up in February and was prescribed imiquimod cream to use for 6 weeksHe is concerned about using medication due to risk of skin irritation .Discussed se/r/b of imiquimod cream. Mutually elect to defer use of medication unless clinical recurrence of skin cancer visible on exam. Will continue to monitor Acute cont act dermatitis 808079198 L25.9 364 b/l axillae. He admits to using an old deodorant in his gym back that he had not been using. He has thrown the product away.I doubt it is fungalWill agree to s/t use of nystatin-t riamcinolo ne up to 2 weeks only. 30 g tube provided Tinea pedis 6118713 B35. 3 23514868 ChronicDis cussed dxWill treat with terbinafin e. Should clear in 2-4 weeks Onychomycosis 976337804 B35.1 22133 Chronic on b/l feet 1st and 2nd toes Tx options discussed topical vs oral medication . He would like to take oral medication .Start terbinafin e 250 mg qd x 12 weeks. se/r/b reviewed. He has no known liver disease No LFTs in chart. His PCP is in [place]. He will have LFTs checked before starting terbinafin e and at 6 week monica Discussed can take 12-18 months for toe nails to fully grow out even with treatment. Printed LFT orders as patient gets his lab work elsewhere. Patient verbalized understand ing of the treatment plan. Genitocrur al intertrigo 401601804 L30.4 33213216 Chronic, clear today with PIHHe is only using talcum powderHe has stopped all topical steroids to inguinal skin including nystatin-t riamcinolo ne, hydrocorti sone 2.5% cream, hydrocorti sone 1% creamHe may use pimecrolim us 1% cream in the future if rash flares again. Avoid topical steroids to this site Health Concerns Section Related Observation LastModified by Organization Detai ls LastModified Time None Recorded Concern Status LastModified by Organization Details LastModified Time None Recorded Payers Encounter Date Sequence Insurance Name Policy Number Policy Neil Covered Member ID Neil Member ID Guarantor Name 05/13/[address] [facility] [id number] Nila Ponce [id number] Pastor Horne Notes Date Note Type Note Provider Name and Address Organization Details Recorded Time 05/13/2025 text/html ROS as noted in the HPI [...] a good mood. ZIYAD BURGESS PA-C [address], [place], [address], [facility] 05/17/2025 18:15:01
--- OUTSIDE RECORDS SUMMARY | 2025-06-02 07:48 | XMS_ITS | Encounter Summary ---
Author Organization Healthcare Address [address] [place] [address] Care Team Providers Care Sash Maker Name Role Phone Unavailable Primary Care Provider Unavailabl e Encounter Details Date Type Department Care Team (Late st Contact Info) Description 03/04/2025 Results Follow-Up [facility] [address], [address] [place] [address] Catrachita Zapata MD [address] [place] [address] Social History Tobacco Use Types [...] 06/17/2025 8:30 AM EST Office Visit [facility] Audiology [address] [place] [address] Yakelin Guerrero, AuD [address] [place] [address] 06/17/2025 9:00 AM EST Office Visit [facility] Otolaryngology [address] [place] [address] Imelda Marquez, REGIONAL DIRECTOR OF ADMISSIONS [address] [place] [address] 06/21/2025 2:45 PM EST Office Visit [facility] [address], [address] [place] [address] Catrachita Zapata MD [address] [place] [address] documented as of this encounter [...]
--- OUTSIDE RECORDS SUMMARY | 2025-06-02 07:48 | XMS_ITS | Encounter Summary ---
Author Organization Healthcare Address [address] [place] [address] Care Team Providers Care Lab Nurse Name Role Phone Unavailable Primary Care Provider Unavailabl e Reason for Visit * Reason Onset Date Comments Hua JOHNSON 03/22/2025 Encounter Details Date Type Department Care Team (Late st Contact Info) Description 03/22/2025 Telephone [facility] [address], [address] [place] [address] Catrachita Zapata MD [address] [place] [address] Hua JOHNSON Social History Tobacco [...] Lois Ray - 03/25/2025 2:53 PM EDT [facility] regarding patients PA Denial of request for [...] Sent PA to Cover My Meds. CHAUHAN: [id number] * Telephone Encounter - Alona Bustamante - 03/22/2025 10:26 AM EDT Needs PA on Meibo, scanned in media developer documented in this encounter Plan of Treatment Upcoming Encounters Date Type Department Care Team (Late st Contact Info) Description 06/17/2025 8:30 AM EST Office Visit [facility] Audiology [address] [place] [address] Yakelin Guerrero, AuD [address] [place] [address] 06/17/2025 9:00 AM EST Office Visit [facility] Otolaryngology [address] [place] [address] Imelda Mraquez, PROGRAM ADVISOR [address] [place] [address] 06/21/2025 2:45 PM EST Office Visit [facility] [address] [place] [address] Catrachita Zapata MD [address] [place] [address] documented as of this encounter [...]
[2025-06-02 08:23] LABS: Hematocrit 44.3 % (42.0-52.0); Hemoglobin 15.0 g/dL (14.1-18.0); Immature Granulocytes % 0.4 %; Mean Corpuscular HGB Conc 33.9 g/dL (31.8-35.4); Mean Corpuscular Hemoglobin 31.1 pg (27.0-31.2); Mean Corpuscular Volume 91.7 fl (80-94); Nucleated Red Blood Cells % 0 %; Platelet Count 183 K/mm3 (142-424); Red Blood Count 4.83 M/mm3 (4.60-6.20); Red Cell Distribution Width-SD 44.5 fL; White Blood Count 5.0 K/mm3 (4.8-10.8)
[2025-06-02 09:21] LABS: Alanine Aminotransferase 25 U/L (12-78); Albumin Level 3.3 g/dl (3.5-5.0); Albumin/Globulin Ratio 0.9 (1.1-1.8); Aspartate Amino Transferase 29 U/L (17-59); Blood Urea Nitrogen 14 mg/dl (9-20); Calcium 8.9 mg/dl (8.4-10.2); Carbon Dioxide 28 mmol/L (22.0-30.0); Chloride 105 mmol/L (98-107); Cholesterol 170 mg/dl (140-200); Creatinine,Serum 0.80 mg/dl (0.66-1.25); Estimated Glomerular Filt Rate 97 ml/min (>60); GFR (African American) 117 ML/MIN (>60); Globulin 3.8 g/dL (1.3-3.2); Glucose 103 mg/dl (74-100); HDL Cholesterol 45 mg/dl (40-60); Sodium 138 mmol/L (136-145); Total Protein,Serum 7.1 g/dl (6.3-8.2); Triglycerides 128 mg/dl (30-150)
[2025-06-02 09:23] LABS: Alkaline Phosphatase 125 U/L (38-126); Anion Gap 9.3 mEq/L (5-15); Bilirubin,Total 1.0 mg/dl (0.2-1.3); Potassium 4.3 mmoL/L (3.5-5.1)
[2025-06-02 10:11] LABS: Hepatitis C Ab Qual. W/ RFX NEGATIVE (Negative)
[2025-06-03 12:19] LABS: Hemoglobin A1C 5.6 % (4.0-6.0)
== END 2025-06-02 23:59 | disposition home or self-care (01) ==
LOC: LAB 07:45
PROVIDERS: PCP Internal Medicine; Visit Provider Internal Medicine
DX: E78.5 Hyperlipidemia, unspecified (principal); D75.89 Other specified diseases of blood and blood-forming organs; Z79.899 Other long term (current) drug therapy; Z11.59 Encounter for screening for other viral diseases; Z12.5 Encounter for screening for malignant neoplasm of prostate
CPT/HCPCS: 36415; 80053; 80061; 83036; 85025; 86803; G0103

== ENCOUNTER 2025-08-03 09:12 | Outpatient (CLI) | payer OTHER, SELFPAY ==
--- NOTE | 2025-08-03 09:14 | XR_ITS ---
FINAL REPORT CLINICAL HISTORY: Cough FINDINGS: 2 views of the chest were obtained . The heart is normal in size. The mediastinum is within normal limits. The lungs are clear. There is no pneumothorax. Osseous structures are unremarkable. IMPRESSION: No acute cardiopulmonary process. Reviewed, Interpreted and Dictated by Linsey Pace MD Transcribed by Ambar Jenkins Authenticated and [facility]
--- OUTSIDE RECORDS SUMMARY | 2025-08-03 09:15 | XMS_ITS | Clinical Summary ---
Author Organization [facility] Address [address] [place] [address] Phone Care Team Providers Care Laceworker Name Role Phone Unavailable Unavailable Conditions or Problems No information available. Medications No information available. Medications Administered No information available. Allergies, Adverse Reactions, Alerts No information available. Results No information available. Plan of Care No information available. Procedures No information available. Vital Signs No information available. Immunizations No information available. Advance Directives No information available.
--- OUTSIDE RECORDS SUMMARY | 2025-08-03 09:15 | XMS_ITS | Clinical Summary ---
Author Organization [facility] Address [address] [place] [address] Care Team Providers Care Hospital Plan Administrator Name Role Phone Joe Freire MD Primary Care Provider [phone] Social History Tobacco Use Types Packs/Day Years [...] Insurance [employer] Care Teams Hospital Plan Administrator Relationship Specialty Start Date End Date Joe Freire MD PCP - General Family Medicine 06/03/17
--- OUTSIDE RECORDS SUMMARY | 2025-08-03 09:15 | XMS_ITS | Continuity of Care Document ---
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 Referral None recorded. Procedures None recorded. Surgeries None recorded. Imaging None recorded. Medication Orders None recorded. Patient TargetsNo targets recorded. Patient Instructions Encounter Date Encounter Id Patient Instructions Last Modified By Organization Details Last Modified Time 06/01/2025 [id number] Education/alt/ri s ks/benefits/SE of Dx & Tx discussed. Daily UV protection with broad-spectrum SPF 30+ on exposed areas recommended. Pt encouraged to RTC with any new/changing lesions. Not available 05/31/2025 11:30:21 Reason for Referral None Reported. Problems Name Problem SNOMED Code Status Onset Date Resolution Date Notes Provider Name and Address Organization Details Recorded Time Chronic prostatit is 93315638 Active 2015 From Automated Load;Provi hannah: Josse Blackburn Jr;Sta tus: Active Not Available [facility] 6 09:37:43 Impotence Active 2015 From Automated Load;Provi hannah: Josse Blackburn Jr;Marie tus: Active Not Available [facility] 6 09:37:43 Large prostate 251371801 Active 2015 From Automated Load;Provi hannah: Josse Blackburn Jr;Sta tus: Active Not Available [facility] 6 09:38:14 Cough 40409495 Active 2015 From Automated Load;Provi hannah: Jarocho Hauser III;St atus: Active Not Available [facility] 6 09:38:14 Difficult y speaking Active 2015 From Automated Load;Provi hannah: Analisa RUSSO, Jarocho;St atus: Active Not Available [facility] 6 09:38:14 Varicocel e 23531829 Active 2023 JOSSE BLACKBURN JR, MD [address] [place], [address] , [facility] 4 13:44:58 Problem Notes None recorded. Procedures Surgical History Date Name Laterality Status Provider Name and Address Organization Details Recorded Time 5 Biopsy Skin Lesion; Tangential completed Agatha Pereira [facility] 09/08/2024 16:04:33 4 Biopsy Skin Lesion; Tangential completed ZIYAD BURGESS PA-C [address] [place], [address], [facility] 03/02/2024 08:44:48 1 Shave Lesion; scalp, neck, hand, foot, genitalia completed Kasey Lugo [facility] 03/09/2021 10:42:55 0 Shave Lesion; scalp, neck, hand, foot, genitalia completed ZIYAD BURGESS PA-C [address] [place], [address], [facility] 06/16/2020 13:22:02 9 Biopsy Penile Lesion completed ZIYAD BURGESS PA-C [address] [place], [address], [facility] 04/24/2019 17:05:13 8 Cerumen removal - Instruments, Unilateral completed MINH ARIAS, INDUCTION HEATING EQUIPMENT SETTER [address] [place], [address], [facility] 06/19/2018 10:04:21 Imaging Results None recorded. Procedure Notes None recorded. Medical Equipment None Reported. Allergies Allergen ID Allergen Name Allergen Category Reaction Reaction Severity Criticality Documentation Date Start Date Code Code System Note Provider Name and Address Organization Details Recorded Time 011081 Cipro medicatio n Not available Not available Not available 06/29/2016201256 3 RxNorm Comme nt: Creat ed By: Danny weems Date: 2012 10:03 :44 AM; Not Available [facility] 6 09:56:25 378603 Bactrim medicatio n itching Not available Not available 05/11/2019 83742 9 RxNorm Sanjana Jasmine [facility] 1 13:24:25 Medications Name Sig Start Date Stop Date Status Note LastModified by Organization Details LastModified Time Prescript ion - Renewal 12/28 completed Not Available Not Available Not Available ivermecti n 3 mg tablet Take 5 tabs as a single dose, repeat in 1 week. 2024 active Not Available Not Available Not Avai lable fosfomyci n trometham ine 3 gram oral [...] BY THOROUGH WASHING. REPEAT IN 1 WEEK. 2024 active Not Available Not Available Not Avai lable valacyclo vir 500 mg tablet TAKE 1 [...] Tobacco Smoking Status Former Smoker Megan Ramey [facility] 08/16/2017 10:18:58 How Much Tobacco Do You Chew? None [email or web address] Information not available 02/01/2021 What Was The Date Of Your Most Recent Tobacco Screening? 06/26/2024 [email or web address] Information not available 06/26/2024 Has Tobacco Cessation Counseling Been Provided? No [email or web address] Information not available 02/24/2021 Have You Recently Traveled Abroad? No [email or web address] Information not available 02/24/2021 Sex: Male Functional Status Question Answer Note LastModified by Organizat ion Details LastModified Time Do you use any illicit or recreational drugs? No [email or web address] Information not available 02/24/2021 Do you or have you ever used any other forms of tobacco or nicotine? No [email or web address] Information not available 02/24/2021 What is your level of alcohol consumption? Occasional [email or web address] Information not available 08/16/2017 Mental Status None [...] Recorded Time MMR 03/16/2002 completed Not Available [facility] 06/01/2025 13:48:12 varicella 03/16/2002 completed Not Available [facility] 06/01/2025 13:48:12 MMR 06/10/2002 completed Not Available [facility] 06/01/2025 13:48:12 varicella 06/10/2002 completed [facility] 06/01/2025 13:48:12 Hep B, adult 06/25/2011 completed Not Available [facility] 06/01/2025 13:48:12 Hep B, adult 07/25/2011 completed Not Available [facility] 06/01/2025 13:48:12 Influenza, recombinant, quadrivalent, PF 05/05/2020 completed [facility] Available [facility] 13:48:12 COVID-19, mRNA, LNP-S, PF, 100 mcg/0.5mL dose or 50 mcg/0.25mL dose 09/16/2020 completed Not Available [facility] 05/06 13:48:12 Influenza, split virus, quadrivalent, PF 05/19/2021 completed Not Available [facility] 13:48:12 COVID-19, mRNA, LNP-S, PF, 100 mcg/0.5mL dose or 50 mcg/0.25mL dose 12/09/2021 completed Not Available [facility] 05/06 13:48:12 COVID-19, mRNA, LNP-S, bivalent, PF, 50 mcg/0.5 mL or 25mcg/0.25 mL dose 05/05/2022 completed Not Available [facility] 13:48:12 Influenza, split virus, quadrivalent, PF 05/05/2022 completed Not Available [facility] 13:48:12 Influenza, split virus, quadrivalent, PF 05/20/2023 completed Not Available [facility] 13:48:12 Influenza, split virus, trivalent, PF 04/30/2024 completed Not Available [facility] 2024 13:48:12 Influenza, high-dose, trivalent, PF 05/25/2025 completed Not Available [facility] 2024 13:48:12 Past Encounters Encounter ID Performer Location Encounter Start Date Encounter Closed Date Diagnosis/Indication Diagnosis SNOMED-CT Code Diagnosis ICD10 Code Diagnosis IMO Codes Diagnosis Note [id number] ZIYAD BURGESS PA-C [facility] [address] [place] [address] 05/13/2025 15:39:21 05/14/2025 09:00:17 History of squamous cell carcinoma in situ 0848919105 9105 Z86.007 [id number] L flank - s/p EDC while he was in [place] September 2024No Ilana was seen by dermatolog ist in [place] for follow up in February and was prescribed imiquimod cream to use for 6 weeksHe is concerned about using medication due to risk of skin irritation .Discussed se/r/b of imiquimod cream. Mutually elect to defer use of medication unless clinical recurrence of skin cancer visible on exam. Will continue to monitor Acute cont act dermatitis 819493570 L25.9 364 b/l axillae. He admits to using an old deodorant in his gym back that he had not been using. He has thrown the product away.I doubt it is fungalWill agree to s/t use of nystatin-t riamcinolo ne up to 2 weeks only. 30 g tube provided Tinea pedis 7545328 B35. 3 95568455 ChronicDis cussed dxWill treat with terbinafin e. Should clear in 2-4 weeks Onychomycosis 867663219 B35.1 21550 Chronic on b/l feet 1st and 2nd toes Tx options discussed topical vs oral medication . He would like to take oral medication .Start terbinafin e 250 mg qd x 12 weeks. se/r/b reviewed. He has no known liver disease No LFTs in chart. His PCP is in [place]. He will have LFTs checked before starting terbinafin e and at 6 week monica Discussed can take 12-18 months for toe nails to fully grow out even with treatment. Printed LFT orders as patient gets his lab work elsewhere. Patient verbalized understand ing of the treatment plan. 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 Avoid topical steroids to this site [id number] ZIYAD BURGESS PA-C DERMATOLO [facility] [address] [place] [address] 06/01/2025 13:47:35 06/01/2025 14:44:29 Genitocrural intertrigo 511874323 L30.4 70044232 Chronic, clear today with PIHHe is only [...] is talc free Raised adrián orrheic keratosis 0675993621 90554 L82.0 [id number] Benign reassuranc eHe has had hx of [...] Neil Member ID Guarantor Name 06/01/2025 1 [facility] [id number] Nila Ponce [id number] Fernando Coleen Notes Date Note Type Note Provider Name [...] good mood. ZIYAD BURGESS PA-C [address] [place], [address], [facility] 06/01/2025 18:28:01
--- OUTSIDE RECORDS SUMMARY | 2025-08-03 09:15 | XMS_ITS | Continuity of Care Document ---
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 Has a varicocele he plans to have treated by urology His PCP is in [place] [address] Not available 05/17/2025 18:14:49 Plan of Treatment Reminders Order Date Submit Date Provider Last Modified By Organization Details Last Modified Time Details Appointments DERM ESTABLIS HED 2025 03:30P Yodit BURGESS PA-C Not available Not available Not available Lab hepatic function panel, serum 2024 025 [email or web address] [facility], [address] [place] [address], [phone], 05/13/2025 16:34:27 hepatic function panel, serum 2024 025 [email or web address] [facility], [address] [place] [address], [phone], 05/13/2025 16:34:27 Referral None recorded . Procedures None recorded . Surgeries None recorded . Imaging None recorded . Medication Orders nystatin -triamci nolone 100,000 unit/g-0 .1 % topical cream 2024 025 [facility], [address] [place] [address], [phone], 05/13/2025 17:02:29 terbinaf ine HCl 250 mg tablet 2024 025 [facility], [address] [place] [address], [place], [address], 05/13/2025 17:02:28 Patient TargetsNo targets recorded. Patient Instructions Encounter Date Encounter Id Patient Instructions Last Modified By Organization Details Last Modified Time 05/13/2025 [id number] Education/alt/ri s ks/benefits/SE of Dx & Tx [...] Josse Blackburn Jr;Sta tus: Active Not Available [facility] 6 09:37:43 Impotence Active 2015 From Automated Load;Provi hannah: Josse Blackburn Jr;Sta tus: Active Not Available [facility] 6 09:37:43 Large prostate 036558324 Active 2015 From Automated Load;Provi hannah: Josse Blackburn Jr;Sta tus: Active Not Available [facility] 6 09:38:14 Cough 23718345 Active 2015 From Automated Load;Provi hannah: Kiarra Hauser III atus: Active Not Available [facility] 6 09:38:14 Difficult y speaking Active 2015 From Automated Load;Provi hannah: Bert Hauser IIISt atus: Active Not Available [facility] 6 09:38:14 Varicocel e 47580184 Active 2023 JOSSE BLACKBURN JR, MD [address] [place] [address], [address] , [facility] 4 13:44:58 Problem Notes None recorded. Procedures Surgical History Date Name Laterality Status Provider Name and Address Organization Details Recorded Time 5 Biopsy Skin Lesion; Tangential completed Agatha Pereira [facility] 09/08/2024 16:04:33 4 Biopsy Skin Lesion; Tangential completed ZIYAD BURGESS PA-C [address] [place], [place], [address] [place] [address], [facility] 03/02/2024 08:44:48 1 Shave Lesion; scalp, neck, hand, foot, genitalia completed Kasey Lugo [facility] 03/09/2021 10:42:55 0 Shave Lesion; scalp, neck, hand, foot, genitalia completed ZIYAD BURGESS PA-C [address] [place], [place], [address] [place] [address], [facility] 06/16/2020 13:22:02 9 Biopsy Penile Lesion completed ZIYAD BURGESS PA-C [address] 04/24/2019 17:05:13 8 Cerumen removal - Instruments, Unilateral completed MINH ARIAS APRN [address] [place] [address], [address] [place] [address], [facility] 06/19/2018 10:04:21 Imaging Results None recorded. Procedure Notes None recorded. Medical Equipment None Reported. Allergies Allergen ID Allergen Name Allergen Category Reaction Reaction Severity Criticality Documentation Date Start Date Code Code System Note Provider Name and Address Organization Details Recorded Time 035836 Cipro medicatio n Not available Not available Not available 06/29/2016201256 3 RxNorm Comme nt: Creat ed By: Danny weems Date: 2012 10:03 :44 AM; Not Available [facility] 6 09:56:25 470753 Bactrim medicatio n itching Not available Not available 05/11/2019 59479 9 RxNorm [facility] 1 13:24:25 Medications Name Sig Start Date [...] Tobacco Smoking Status Former Smoker Megan Ramey [facility] 08/16/2017 10:18:58 How Much Tobacco Do You Chew? None [email or web address] Information not available 02/01/2021 What Was The Date Of Your Most Recent Tobacco Screening? 06/26/2024 [email or web address] Information not available 06/26/2024 Has Tobacco Cessation Counseling Been Provided? No [email or web address] Information not available 02/24/2021 Have You Recently Traveled Abroad? No Information not available 02/24/2021 Sex: Male Functional Status Question Answer Note LastModified by Organizat ion Details LastModified Time Do you use any illicit or recreational drugs? No [email or web address] Information not available 02/24/2021 Do you or have you ever used any other forms of tobacco or nicotine? No [email or web address] Information not available 02/24/2021 What is your level of alcohol consumption? Occasional [email or web address] Information not available 08/16/2017 Mental Status None [...] Recorded Time MMR 03/16/2002 completed Not Available [facility] 06/01/2025 13:48:12 varicella 03/16/2002 completed Not Available [...] 50 mcg/0.25mL dose 09/16/2020 completed Not Available [facility] 05/06 13:48:12 Influenza, split virus, quadrivalent, PF 05/19/2021 completed Not Available [facility] 13:48:12 COVID-19, mRNA, LNP-S, PF, 100 mcg/0.5mL dose or 50 mcg/0.25mL dose 12/09/2021 completed Not Available [facility] 05/06 13:48:12 COVID-19, mRNA, LNP-S, bivalent, PF, 50 mcg/0.5 mL or 25mcg/0.25 mL dose 05/05/2022 completed Not Available [facility] 13:48:12 Influenza, split virus, quadrivalent, PF 05/05/2022 completed Not Available [facility] 13:48:12 Influenza, split virus, quadrivalent, PF 05/20/2023 completed Not Available [facility] 13:48:12 Influenza, split virus, trivalent, PF 04/30/2024 completed Not Available [facility] 2024 13:48:12 Influenza, high-dose, trivalent, PF 05/25/2025 completed Not Available [facility] 2024 13:48:12 Past Encounters Encounter ID Performer Location Encounter Start Date Encounter Closed Date Diagnosis/Indication Diagnosis SNOMED-CT Code Diagnosis ICD10 Code Diagnosis IMO Codes Diagnosis Note [id number] ZIYAD BURGESS PA-C DERMATOLO [facility] [address] [place] [address] 05/13/2025 15:39:21 05/14/2025 09:00:17 History of squamous cell carcinoma in situ 8832262927 9105 Z86.007 71547784 L flank - s/p EDC while he was in [place] September 2024Romina Preciado was seen by dermatolog ist in [place] for follow up in February and was prescribed imiquimod cream to use for 6 weeksHe is concerned about using medication due to risk of skin irritation .Discussed se/r/b of imiquimod cream. Mutually elect to defer use of medication unless clinical recurrence of skin cancer visible on exam. Will continue to monitor Acute cont act dermatitis 515811467 L25.9 364 b/l axillae. He admits to using an old deodorant in his gym back that he had not been using. He has thrown the product away.I doubt it is fungalWill agree to s/t use of nystatin-t riamcinolo ne up to 2 weeks only. 30 g tube provided Tinea pedis 2815799 B35. 3 56722779 ChronicDis cussed dxWill treat with terbinafin e. Should clear in 2-4 weeks Onychomycosis 629927560 B35.1 10843 Chronic on b/l feet 1st and 2nd toes Tx options discussed topical vs oral medication . He would like to take oral medication .Start terbinafin e 250 mg qd x 12 weeks. se/r/b reviewed. He has no known liver disease No LFTs in chart. His PCP is in [place]. He will have LFTs checked before starting terbinafin e and at 6 week monica Discussed can take 12-18 months for toe nails to fully grow out even with treatment. Printed LFT orders as patient gets his lab work elsewhere. Patient verbalized understand ing of the treatment plan. Genitocrur al intertrigo 789741235 L30.4 16802087 Chronic, clear today with PIHHe is only [...] Neil Member ID Guarantor Name 05/13/2025 1 [facility] [id number] Nila Ponce [id number] Pastor Hollis Horne Notes Date Note Type Note Provider [...] good mood. ZIYAD BURGESS PA-C [address] [place], [address], [facility] 05/17/2025 18:15:01
--- OUTSIDE RECORDS SUMMARY | 2025-08-03 09:15 | XMS_ITS | Clinical Summary ---
Author Organization Healthcare Address [address] [place] [address] Care Team Providers Care Manager Gift Name Role Phone Unavailable Primary Care Provider [...] Team Description 05/25/2025 11:20 AM EDT Immunization [facility] [address] [place] [address] Flu vaccine need (Primary Dx) from Last 3 Months Immunizations Immunization Administration [...] 04/14/2025 10:27 AM EDT Plan of Treatment Health Maintenance Due Date [...] Years (1 of 1 - PCV) 2009 [facility]-RSV Vaccine: 60+ Years or (1 - Risk 50-74 years 1-dose series) 2009 [facility]-Zoster Vaccines (1 of 2) 2009 06/10/2002, 03/16/2002 [facility]-Depression Screening 08/09/2023 08/09/2022 [id number] Vaccine ( season) 2025 05/05/2022, 12/09/2021, 09/16/2020 [facility]-Influenza Vaccine Completed 05/25/2025 , 04/30/2024, 05/20/2023, Additional history exists HPV Vaccines (No Doses Required) Completed [facility]-HIB Vaccines Aged Out No longer e [...] Procedure Name Priority Date/Time Associated Diagnosis Comments PROPHYLAXIS - CHILD Routine 07/15/1998 1 2:00 AM EST BITEWINGS - 4 RADIOGRAPHIC IMAGES Routine 07/06/1998 12:00 AM EST from Last 3 Months or Most Recently Relevant to Health Maintenance Insurance [facility]
--- OUTSIDE RECORDS SUMMARY | 2025-08-03 09:16 | XMS_ITS | Data Portability ---
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 Has a varicocele he plans to have treated by urology Not available 01/20/2025 10:04:56 02/09/2025 02/09/2025 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 Has a varicocele he plans to have treated by urology [email or web address] Not available 02/09/2025 08:44:37 05/13/2025 05/13/2025 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 Has a varicocele he plans to have treated by urology His PCP is in [place] [email or web address] Not available 05/17/2025 18:14:49 06/01/2025 06/01/2025 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 Has a varicocele he plans to have treated by urology His PCP is in [place] Not available 05/31/2025 11:30:21 Plan of Treatment Reminders Order Date Submit Date Provider Last Modified By Organization Details Last Modified Time Details Appointments DERM ESTABLIS HED 2025 03:30P M ZIYAD BURGESS PA-C Not available Not available Not available Lab hepatic function panel, serum 2024 [email or web address] [facility], [address] [place] [address], [phone], 05/13/2025 16:34:27 hepatic function panel, serum [address] [facility], [address] [place] [address], [id number], 05/13/2025 16:34:27 Referral None recorded . Procedures None recorded . Surgeries None recorded . Imaging None recorded . Medication Orders nystatin -triamci nolone 100,000 unit/g-0 .1 % topical cream 2024 [facility], [address] [place] [address], [address], 05/13/2025 17:02:29 terbinaf ine HCl 250 mg tablet 2024 025 [facility], [address] [place] [address], [address], 05/13/2025 17:02:28 fluconaz ole 150 mg tablet 2024 025 [facility] [address], [address] [place] [address], [address], 12/08/2024 16:11:17 Patient TargetsNo targets recorded. Patient Instructions Encounter Date Encounter Id Patient Instructions Last Modified By Organization Details Last Modified Time 12/08/2024 [id number] Education/alt/ri s ks/benefits/SE of Dx & Tx discussed. Daily UV protection with broad-spectrum SPF 30+ on exposed areas recommended. Pt encouraged to RTC with any new/changing lesions. [email or web address] Not available 12/08/2024 11:51:52 01/21/2025 [id number] Education/alt/ri s ks/benefits/SE of Dx & Tx discussed. Daily UV protection with broad-spectrum SPF 30+ on exposed areas recommended. Pt encouraged to RTC with any new/changing lesions. [email or web address] Not available 01/20/2025 10:04:56 02/09/2025 [id number] Education/alt/ri s ks/benefits/SE of Dx & Tx discussed. Daily UV protection with broad-spectrum SPF 30+ on exposed areas recommended. Pt encouraged to RTC with any new/changing lesions. [email or web address] Not available 02/09/2025 08:44:37 05/13/2025 [id number] Education/alt/ri s ks/benefits/SE of Dx & Tx discussed. Daily UV protection with broad-spectrum SPF 30+ on exposed areas recommended. Pt encouraged to RTC with any new/changing lesions. Not available 05/12/2025 14:38:44 06/01/2025 [id number] Education/alt/ri s ks/benefits/SE of Dx & Tx [...] is Active 2015 From Automated Load;Provi hannah: Titi Blackburn JrSta tus: Active Not Available [facility] 6 09:37:43 Impotence Active 2015 From Automated Load;Provi hannah: Josse Blackburn Jr;Sta tus: Active Not Available [facility] 6 09:37:43 Large prostate 297437453 Active 2015 From Automated Load;Provi hannah: Josse Blackburn Jr;Sta tus: Active Not Available [facility] 6 09:38:14 Cough 97097711 Active 2015 From Automated Load;Provi hannah: Kiarra Hauser III atus: Active Not Available [facility] 6 09:38:14 Difficult y speaking Active 2015 From Automated Load;Provi hannah: Jarocho Hauser III;St atus: Active Not Available [facility] 6 09:38:14 Varicocel e 15287517 Active 2023 JOSSE BLACKBURN JR, MD [address] [place], [address] , [facility] 4 13:44:58 Problem Notes None recorded. Procedures Surgical History Date Name Laterality Status Provider Name and Address Organization Details Recorded Time 5 Biopsy Skin Lesion; Tangential completed Agatha Pereira [facility] 09/08/2024 16:04:33 4 Biopsy Skin Lesion; Tangential completed ZIYAD BURGESS PA-C [address] [place], [address], [facility] 03/02/2024 08:44:48 1 Shave Lesion; scalp, neck, hand, foot, genitalia completed Kasey Lugo [facility] 03/09/2021 10:42:55 0 Shave Lesion; scalp, neck, hand, foot, genitalia completed ZIYAD BURGESS PA-C [address] [place], [address], [facility] 06/16/2020 13:22:02 9 Biopsy Penile Lesion completed ZIYAD BURGESS PA-C [address], [place], [address] [place] [address], [facility] 04/24/2019 17:05:13 8 Cerumen removal - Instruments, Unilateral completed MINH ARIAS APRN [address] [place], [address], [facility] 06/19/2018 10:04:21 Imaging Results None recorded. Procedure Notes None recorded. Medical Equipment None Reported. Allergies Allergen ID Allergen Name Allergen Category Reaction Reaction Severity Criticality Documentation Date Start Date Code Code System Note Provider Name and Address Organization Details Recorded Time 429516 Cipro medicatio n Not available Not available Not available 06/29/2016201256 3 RxNorm Comme nt: Creat ed By: Danny ambrocio;Cande weems Date: 2012 10:03 :44 AM; Not Available [facility] 6 09:56:25 [id number] Bactrim medicatio n itching Not available Not available 05/11/2019 96509 9 RxNorm Sanjana Brayhany [facility] 13:24:25 Medications Name Sig Start [...] Social History Question Answer Notes LastModified by [employer] Details LastModified Time Tobacco Smoking Status Former Smoker Megan Tanvir [facility] 08/16/2017 10:18:58 How Much Tobacco Do You Chew? None [email or web address] Information not available 02/01/2021 What Was The Date Of Your Most Recent Tobacco Screening? 06/26/2024 [email or web address] Information not available 06/26/2024 Has Tobacco Cessation Counseling Been Provided? No [email or web address] Information not available 02/24/2021 Have You Recently Traveled Abroad? No [email or web address] Information not available 02/24/2021 Sex: Male Functional Status Question Answer Note LastModified by [employer] Details LastModified Time Do you use any illicit or recreational drugs? No [email or web address] Information not available 02/24/2021 Do you or have you ever used any other forms of tobacco or nicotine? No [email or web address] Information not available 02/24/2021 What is your level of alcohol consumption? Occasional [email or web address] Information not available 08/16/2017 Mental Status None [...] Recorded Time MMR 03/16/2002 completed Not Available [facility] 06/01/2025 13:48:12 varicella 03/16/2002 completed Not Available [facility] 06/01/2025 13:48:12 MMR 06/10/2002 completed Not Available [facility] 06/01/2025 13:48:12 varicella 06/10/2002 completed Not Available [facility] 06/01/2025 13:48:12 Hep B, adult 06/25/2011 completed Not Available [facility] 06/01/2025 13:48:12 Hep B, adult 07/25/2011 completed Not Available [facility] 06/01/2025 13:48:12 Influenza, recombinant, quadrivalent, PF 05/05/2020 completed Not Available [facility] [...] ICD10 Code Diagnosis IMO Codes Diagnosis Note [id number] JOSSE BLACKBURN JR, MD JEN [facility] [address] [place] [address] 08/16/2017 10:00:43 08/19/2017 13:57:23 Chronic prostatitis 02261127 N41.1 Benign pro static hyperplasia with outflow obstruction 532724417 N40.1 Impotence 335225733 N52. 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 Uncertain how acquired-- pt denied form or other sexual exposure. Could re-eval if flares to get culture. Will give Famvir, discussed suppressio n. 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 Herpetic Gonzales possible. Pt does not want anything put thru insurance. Discussed but will hold on viral and bacterial cultures, but start suppressiv e Valtrex and still has prn Famvir--wi ll see if occ penile irritation improves. RF fluticason e for occ perineal irritation . Genital he rpes simplex 90242794 A60.9 With hx (+) HSV-2 IgG, this was not acute exposure, but < 1 yr per hx from pt. Uncertain how acquired-- pt denied form or other sexual exposure. Could re-eval if flares to get culture. Will give Famvir, discussed suppressio n. It is possible pt acquired herpetic gonzales in past as cause of (+) HSV-2 IgG. [id number] MINH ARIAS, UMAIR PA [facility] [address] [place] [address] 06/19/2018 08:41:11 06/19/2018 11:25:43 Impacted cerumen in left ear 7256884588 526216 H61.22 - felt more open and improved hearing after cerumenect maribell - no evidence of infection or middle ear effusions 06/19/18 Dysfunctio n of bilateral eustachian tubes 4753564696 258612 H69.93 Deviated nasal septum 12 1619369 J34.2 - left, severe Nasal obstruction 147461 000 J34.89 - left 90% obstructio n secondary to deviated septum [id number] JOSSE BLACKBURN JR, MD [address],[facility] [place] [address] 12/24/2018 08:52:34 12/24/2018 10:30:36 Large prostate 505769921 N40.0 Chronic prostatitis 1989 5009 N41.1 Impotence 360063777 N52. 9 [id number] JOSSE BLACKBURN JR, MD [address] [place], [place] [address] 03/04/2019 08:53:00 03/09/2019 11:39:34 Chronic prostatitis 15325283 N41.1 Epididymitis 92020834 N4 5.1 [id number] JENNIFER FERNÁNDEZ MD [facility] [address] [address] [place] [address] 03/25/2019 08:32:00 03/25/2019 13:41:32 Intertrigo 70937626 L30.4 better with pigment changes--a pply nystatin and TAC to affected areas as directed (called and switched nystatin/T AC combo to just nystatin cream) Perianal dermatitis 0555 25603 L30.9 may con't occasional fluticason e as directed below Itching of skin 76999385 0 L29.9 back unremarkab le exam, ? notalgia-- try TAC here also [id number] JONNIE SMITH [place] [address] [place] [address] 04/24/2019 15:11:48 04/27/2019 10:21:47 Neoplasm of uncertain behavior of skin 42204386 D48.5 shave biopsy with ED to base r/o angiokerat manisha vs SK reassured patient of non-contag ious nature - NOT HSV OR MOLLUSCUM wash with soapy water daily, apply polysporin daily until healed call with result Intertrigo 67733519 L30. 4 better with pigment changes continue nystatin/T AC creams as needed consider tinea incognito if worsens, but rather non-inflam matory exam today Senile hyperkeratosis 39 4262063 L82.1 benign reassuranc e brochure provided Genital he rpes simplex 99363609 A60.9 With hx (+) HSV-2 IgG Continues to do well with suppressiv e valacyclov ir He inquired about need for STD panel today. I told him I did not think it was necessary as he and his are both asymptomat ic. Offered full panel if desired, he declined. with history of infidelity . They are in counseling [id number] MD RIDDHI REEDER [facility] [address] [address] 05/04/2019 16:30:05 05/05/2019 08:37:39 Tinea cruris 876878834 B35.6 vs other. Treated for intertrigo , got better, now ? tinea, early follic, other. Will switch Nystatin to ketoconazo le and stop TAC. Add Bactrim. Bx if worse. No sign 0of STD. [id number] MD RIDDHI REEDER [place] [address] [place] [address] 05/11/2019 09:39:33 05/11/2019 15:50:01 Allergic reaction to drug 795273637 T50.905A possible to Bactrim--s topped 2 days ago, will call if not better this week. Possible scabies but less likely. Groin/thig h rash better--if worsens may restart doxy instead of Bactrim (doxy was given for prostate problem). Has Valtrex for HSV. Tinea cruris 477418458 B 35.6 vs other. Better with ketoconazo le. Hold on antibiotic s for now. [id number] MD JEN FELIX JR, [facility] [address] [place] [address] 07/16/2019 10:46:37 07/16/2019 11:34:13 Kidney stone 17471455 N20.0 Blood in urine 10278225 R31.9 Adult heal th examination 380436720 Z00.00 [id number] JONNIE SMITH [facility] [address] [place] [address] 06/16/2020 09:37:37 06/16/2020 10:23:27 Raised seborrheic keratosis 5900917899 56597 L82.1 Shave removal x 2 - see procedure note Patient preferred shave removal rather than tx with LN due to location; discussed option to send to pathology with him. I do not feel it is necessary as diagnosis is not in question and he agreed. Pt tolerated procedure well, after care given Skin sensa tion disturbance 10615619 R20.9 [id number] JOSSE BLACKBURN JR, MD [address] [place] [address] 02/01/2021 09:25:54 02/01/2021 15:57:00 Chronic prostatitis 52644713 N41.1 Large prostate 169566020 N40.0 [id number] MD JEN FELIX JR, [facility] [address] [place] [address] 02/24/2021 09:24:35 02/24/2021 11:24:41 Chronic prostatitis 80135318 N41.1 Large prostate 166144002 N40.0 [id number] JONNIE SMITH [facility] [address] [place] [address] 03/09/2021 09:57:33 03/09/2021 11:24:50 Intertrigo 29418474 L30.4 Better with pigment changes continue nystatin-T AC cream as neededstar t drying powder daily, suggestion s provided. He is a little concerned with talcum so I suggested corn starch powder Raised adrián orrheic keratosis 4056691107 28763 L82.1 Shave removal x 1 - see procedure note Patient preferred shave removal rather than tx with LN due to location; discussed option to send to pathology with him. I do not feel it is necessary as diagnosis is not in question and he agreed. Pt tolerated procedure well, after care given Angiokeratoma of skin 25 9512147 D23.9 Numbed and destroyed with ED x 1 - see procedure note Pt tolerated procedure well, after care given [id number] JOSSE BLACKBURN JR, MD C[facility] [address] [place] [address] 03/27/2021 09:50:33 03/27/2021 10:32:54 Benign prostatic hyperplasia with outflow obstruction 765588729 N40.1 Chronic prostatitis 1989 5009 N41.1 [id number] JENNIFER FERNÁNDEZ MD [facility] [address] [place] [address] 01/05/2022 10:10:39 01/05/2022 10:58:08 Pruritic disorder 914688761 L29.9 Skin is clear todaysudde n onset after mowing last weekpossib le mites vs contactwil l refill permethrin and Ivermectin Herpes simplex 43503067 B00.9 good control on suppressiv e therapy Valtrex 1 g refilled today [id number] ZIYAD BURGESS PA-C [facility] [address] [place] [address] 03/07/2022 10:45:45 03/07/2022 12:11:08 Erythrasma 437893287 L08.1 Clinically favor erythrasma in inguinal foldsWoods lamp positive for red/orange fluorescen ceStart clindamyci n solution as directedRe commended BPO wash in the shower for maintenanc e 2-3 times per weekRoutin e & yeast cultures taken todayF/up as needed Intertrigo 28944655 L30. 4 Clinically favor erythrasma today, not intertrigo Patient requested a year refill of nystatin-t riamcinolo ne for intertrigo flares - he voiced understand ing not to treat his erythrasma with this [id number] JOSSE BLACKBURN JR, MD CUA [facility] [address] [place] [address] 04/12/2022 11:19:46 04/12/2022 12:12:22 Chronic prostatitis 16799344 N41.1 Large prostate 183133744 N40.0 Varicocele 78774572 I86. 1 [id number] JOSSE BLACKBURN JR, MD [facility] [address] [place] [address] 08/08/2023 15:57:35 08/08/2023 16:30:08 Balanitis 06831542 N48.1 Chronic prostatitis 1989 5009 N41.1 Large prostate 236328752 N40.0 Varicocele 87915805 I86. 1 [id number] JENNIFER FERNÁNDEZ MD [facility] [address] [place] [address] 11/27/2023 08:45:15 11/27/2023 10:21:12 Melanocytic nevus of skin 985863427 D22.9 Reassuranc e and education regarding the disorder and options. [id number] ZIYAD BURGESS PA-C [facility] [address] [place] [address] 03/02/2024 07:39:09 03/02/2024 08:41:21 Intertrigo 27072418 L30.4 Chronic on inguinal skinDx in 2018 [...] riamcinolo ne cream. Raised adrián orrheic keratosis 6423434629 92845 L82.1 Benign reassuranc e [id number] JOSSE BLACKBURN JR, MD CUA [facility] [address] [facility] [address] [address] [place] [address] 05/06/2024 09:05:52 05/06/2024 09:49:31 Prostatitis 5438088 N41.9 Large prostate 828701865 N40.0 [id number] JOSSE BLACKBURN JR, MD [facility] [address] [facility],[address] [place] [address] 06/26/2024 10:01:07 06/26/2024 11:04:28 Chronic prostatitis 04340329 N41.1 Large prostate 309784147 N40.0 Varicocele 10537184 I86. 1 [id number] ZIYAD BURGESS PA-C [address] [address] [place] [address] 09/08/2024 15:16:00 09/08/2024 16:07:02 Intertrigo 74679132 L30.4 Chronic on inguinal skinDx in [address] Jammie hendersontlpa treating with nystatin-t riamcinolo ne cream. 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 [...] in 1 month for response to tx [id number] ZIYAD BURGESS PA-C [address] [place] [address] 10/20/2024 08:47:01 10/20/2024 11:55:35 Pityriasis versicolor 08207622 B36.0 Chronic in groinEduca tion on dx. 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 f/up 6 weeks [id number] ZIYAD BURGESS PA-C [address] [facility] [address] [place] [address] 12/08/2024 14:28:57 12/08/2024 15:40:40 Pityriasis versicolor 56743475 B36.0 Education on dx. 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 Mutually elect to defer use of medication unless clinical recurrence of skin cancer visible on exam. Will continue to monitor [id number] JONNIE SMITH [address] [place] [address] 05/13/2025 15:39:21 05/14/2025 09:00:17 History of squamous cell carcinoma in situ 0503256610 9105 Z86.007 03315240 L flank - s/p EDC while he was in [place] September 2024No Ilana was seen by dermatolog ist in [place] for follow up in February and was prescribed imiquimod cream to use for 6 weeksHe is concerned about using medication due to risk of skin irritation .Discussed se/r/b of imiquimod cream. Mutually elect to defer use of medication unless clinical recurrence of skin cancer visible on exam. Will continue to monitor Acute cont act dermatitis 699306921 L25.9 364 b/l axillae. He admits to using an old deodorant in his gym back that he had not been using. He has thrown the product away.I doubt it is fungalWill agree to s/t use of nystatin-t riamcinolo ne up to 2 weeks only. 30 g tube provided Tinea pedis 4866875 B35. 3 54874699 ChronicDis cussed dxWill treat with terbinafin e. Should clear in 2-4 weeks Onychomycosis 324305167 B35.1 57169 Chronic on b/l feet 1st and 2nd toes Tx options discussed topical vs oral medication . He would like to take oral medication .Start terbinafin e 250 mg qd x 12 weeks. se/r/b reviewed. He has no known liver disease No LFTs in chart. His PCP is in [place]. He will have LFTs checked before starting terbinafin e and at 6 week monica Discussed can take 12-18 months for toe nails to fully grow out even with treatment. Printed LFT orders as patient gets his lab work elsewhere. Patient verbalized understand ing of the treatment plan. Genitocrur al intertrigo 287989102 L30.4 59683992 Chronic, clear today with PIHHe is only using talcum powderHe has stopped all topical steroids to inguinal skin including nystatin-t riamcinolo ne, hydrocorti sone 2.5% cream, hydrocorti sone 1% creamHe may use pimecrolim us 1% cream in the future if rash flares again. Avoid topical steroids to this site [id number] ZIYAD BURGESS PA-C [address] [facility] [address] [place] [address] 06/01/2025 13:47:35 06/01/2025 14:44:29 Genitocrural intertrigo 896537247 L30.4 89425058 Chronic, clear today with PIHHe is only [...] is talc free Raised adrián orrheic keratosis 7720191874 14638 L82.6 8084257495 Benign reassuranc eHe has had hx of [...] Name 02/01/2021 1 [employer] Fernando Horne [id number] Fernando Horne 02/01/2021 1 [facility] [employer] [facility] (PPO) Fernando Horne [id number] Fernando Horne 02/01/2021 1 [employer] (PPO) Fernando Horne [id number] Fernando Horne 02/01/2021 1 [employer] Fernando Horne [id number] Fernando Horne 05/21/2018 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 Denies any other new, changing, or bleeding lesions, or other rashes, feels well, presents in a good mood, and has no family history of melanoma. ZIYAD BURGESS PA-C [address] [place], [id number], [facility] 12/09/2024 18:56:54 01/21/2025 text/html ROS as noted in the [facility] Established patient Patient presents to clinic today [...] be slightly improved. He is leaving for [place] for 2 weeks this Saturday and would like to know what to do. Denies any other new, changing, or bleeding lesions, or other rashes, feels well, presents in a good mood. ZIYAD BURGESS PA-C [address], [id number], [facility] 01/25/2025 18:26:48 02/09/2025 text/html ROS as noted in the [facility] Established patient Patient presents to clinic today [...] to discuss today. While he was in [place] he saw the provider who treated the SCCIS on L flank in September 2024 and she prescribed him Imiquimod cream to use on the site. He has not started it yet because he wanted to have a second opinion first. Denies any other new, changing, or bleeding lesions, or other rashes, feels well, presents in a good mood. ZIYAD BURGESS PA-C [address] [place], [id number], [facility] 02/17/2025 18:15:41 05/13/2025 text/html ROS as [...] feels well, presents in a good mood. IZYAD BURGESS PA-C [address] [place], [id number], [facility] 05/17/2025 18:15:01 06/01/2025 text/html ROS as noted [...] good mood. ZIYAD BURGESS PA-C [address] [place], [id number], [facility] 06/01/2025 18:28:01
[2025-08-03 14:01] LABS: Coronavirus 19, PCR Not Detected (NotDetected); Influenza A, PCR Not Detected (NotDetected); Influenza B, PCR Not Detected (NotDetected)
== END 2025-08-03 23:59 ==
LOC: RAD 09:13
PROVIDERS: PCP Internal Medicine; Visit Provider Internal Medicine
DX: J06.9 Acute upper respiratory infection, unspecified (principal)
CPT/HCPCS: 71046; 87631